=== PATIENT | female | born 2000 | race Caucasian/White ===

== ENCOUNTER → 2023-08-10 11:26 | Outpatient (CLI) | payer OTHER, SELFPAY ==
--- NOTE | 2023-08-10 11:29 | DI.US.S_ITS ---
PROCEDURE: US OB <= 14 WK FETUS ADD GEST INDICATIONS: DATING AND VIABILITY OUTSIDE/PRIOR DATING DATA: Last menstrual period (LMP): 02/21/2023. LMP-based estimated date of delivery (ZOË): 03/29/2024. First dating scan (date and location): 08/10/2023. Estimated date of delivery (ZOË) from first dating scan: 03/30/2024. The calculations are made using the working ZOË of 03/29/2024. TECHNIQUE: Real-time scanning was performed of the fetuses and maternal pelvic organs, with image documentation. Endovaginal scanning: Performed for better visualization of the fetuses and maternal adnexal structures. COMPARISON: None. FINDINGS: General: An intrauterine mono amniotic, mono chorionic twin is present, as evidenced by separate placental sites and/or intervening membrane thickness of greater than 2 mm at this early gestational age. Embryo A: [place]-rump length 6.7 mm, 6 weeks 4 days Heart rate: 141 beats per minute Embryo B: [place]-rump length 8.0 mm, 6 weeks 5 days Heart rate: 132 beats per minute There are yolk sacs present related to both fetus is period there is a small subchorionic hemorrhage inferior to fuse a gestational sac measuring 2.2 x 0.8 x 1.6 cm. Maternal organs: Ovaries within normal limits. IMPRESSION: Very early mono amniotic, mono chorionic twin with crown-rump lengths and heartbeats. Fetus A measures 6 weeks 4 days. Fetus B measures 6 weeks 5 days. Small subchorionic hemorrhage. We strive to produce accurate, complete, and clear reports of imaging services. To assist us in improving patient care, this report was composed using standard report templates and voice recognition software. Therefore, it may contain abnormal punctuation, insertions and/or omissions. Occasional wrong-word or sound-alike substitutions may occur. Though we review the report and make efforts to correct it, we do recommend that the report be read carefully in proper context to recognize any text inaccuracies. Dictated by: Jose Easton M.D. on 08/10/2023 at 15:44 Approved by: Jose Easton M.D. on 08/10/2023 at 15:49
== END ==
PROVIDERS: Referring Provider Family Medicine; Visit Provider Family Medicine
DX: O30.011 Twin pregnancy, monochorionic/monoamniotic, first trimester (principal); Z3A.01 Less than 8 weeks gestation of pregnancy
CPT/HCPCS: 76801; 76802

== ENCOUNTER 2023-08-12 15:24 | Emergency (ER) | payer OTHER, SELFPAY ==
[2023-08-12 15:27] VITALS: BP 135/72; PULSE 79; RESP 18; TEMP 37; O2SAT 100; BMI 33.9
--- NOTE | 2023-08-12 15:33 | DI.US.S_ITS ---
PROCEDURE: US OB <= 14 WEEKS FETUS INDICATIONS: CRAMPING OUTSIDE/PRIOR DATING DATA: Last menstrual period (LMP): 02/21/23 LMP-based estimated date of delivery (ZOË): 03/29/24. First dating scan (date and location): 08/10/23. Estimated date of delivery (ZOË) from first dating scan: 03/30/23. TECHNIQUE: Real-time scanning was performed of the fetus and maternal pelvic organs, with image documentation. Endovaginal scanning was also performed to better visualize the fetus and maternal ovaries. COMPARISON: None. FINDINGS: Embryos: Twin intrauterine gestations are again seen, mono amniotic, mono chorionic in appearance. Note is made of small adjacent subchorionic hemorrhages measuring 1 cm on the right and 1.6 cm on the left. Only a single small subchorionic hemorrhage had been seen on the prior study. Heart rate: Normal for each twin. Maternal organs: Ovaries normal considering gestational status. IMPRESSION: Living twin intrauterine gestations, monochorionic/mono amniotic. heart activity was seen at each twin, and there has been an interval development of a new small subchorionic hemorrhage measuring only 1.6 cm in maximal dimension. No evidence of placental abruption. We strive to produce accurate, complete, and clear reports of imaging services. To assist us in improving patient care, this report was composed using standard report templates and voice recognition software. Therefore, it may contain abnormal punctuation, insertions and/or omissions. Occasional wrong-word or sound-alike substitutions may occur. Though we review the report and make efforts to correct it, we do recommend that the report be read carefully in proper context to recognize any text inaccuracies. Dictated by: Alli Hassan M.D. on 08/12/2023 at 17:00 Approved by: Alli Hassan M.D. on 08/12/2023 at 17:05
--- NOTE | 2023-08-12 15:45 | PC.NURSE ---
Pt in US when called for room
[2023-08-12 16:28] LABS: Appearance Urine UA CLEAR; Bilirubin Urine UA NEGATIVE (NEGATIVE); Color Urine UA YELLOW; Glucose Urine UA NEGATIVE (Negative); Ketones Urine UA NEGATIVE (NEGATIVE); Leukocyte Esterase Urine UA NEGATIVE (NEGATIVE); Nitrite Urine UA NEGATIVE (Negative); Occult Blood Urine UA NEGATIVE (Negative); Protein Urine UA NEGATIVE (Negative); Specific Gravity Urine UA <=1.005 (1.000-1.035); Urobilinogen Urine UA 0.2 E.U./dL (0.2)
[2023-08-12 16:31] LABS: pH Urine UA 6.5 (4.5-8.0)
[2023-08-12 16:32] LABS: Add Manual Diff / Slide Review NO; Basophils Absolute Auto 100 /uL (0-100); Basophils Percent Auto 0.7 % (0-2); Eosinophils Absolute Auto 100 /uL (0-450); Eosinophils Percent Auto 1.1 % (2-4); Hematocrit 36.1 % (36-46); Hemoglobin 12.2 g/dL (12.0-16.0); Lymphocytes Absolute Auto 2200 /uL (1100-4500); Lymphocytes Percent Auto 28.3 % (25-40); Mean Corpuscular HGB Conc 33.8 % (30-36); Mean Corpuscular Hemoglobin 28.6 PG (26-34); Mean Corpuscular Volume 84.8 fL (80-100); Monocytes Absolute Auto 500 /uL (0-900); Monocytes Percent Auto 6.5 % (3-14); Neutrophils Absolute Auto 4900 /uL (1500-7000); Neutrophils Percent Auto 63.4 % (50-75); Platelet Count 316 X10^3/uL (150-400); Red Blood Cell Count 4.26 X10^6/uL (4.0-5.2); Red Cell Distribution Width 13.4 % (11.6-14.8); White Blood Cell Count 7.7 X10^3/uL (4.5-11.0)
--- NOTE | 2023-08-12 16:41 | ED_ITS ---
HPI - <Luzmaria Valentine PA-C - Last Filed: 08/12/23 17:40> General Chief complaint: OB/Uterine Contractions Stated complaint: 7 wks with twins, Pain and cramping Time Seen by Provider: 08/12/23 15:45 Source: patient Mode of arrival: Ambulatory History of Present Illness HPI Narrative: Patient is a 23-year-old female who presents with concern for uterine cramping. She had an ultrasound 4 days ago which diagnosed 6 week mono mono twins. She had a miscarriage in December of this year. She reports having lower abdominal cramping since this morning. She is had no spotting, bleeding or leaking. She is had no fever or chills and generally feels well. 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 She reports being very fatigued because of being and the length of her shifts including a commute to [place]. She is not getting much sleep and often wakes up a lot at night. She reports breast tenderness and fatigue. Related Data Allergies Allergy/AdvReac Type Severity Reaction Status Date / Time No Known Drug Allergies Allergy Verified 08/12/23 15:27 Review of Systems <Luzmaria Valentine PA-C - Last Filed: 08/12/23 17:40> Review of Systems ROS Unobtainable: All systems reviewed & are unremarkable except as noted in HPI and below Exam <Luzmaria Valentine PA-C - Last Filed: 08/12/23 17:40> Narrative Exam Narrative: GENERAL: 23 year old patient appears stated age. Well-developed patient, appears anxious, tearful. NEURO: AOx3. HEAD: Atraumatic. Normocephalic. EYES: Pupils equal round and reactive. Extraocular motions intact. No scleral icterus. No injection or drainage. ENT: Nose without bleeding or purulent drainage. Airway patent. NECK: Trachea midline. Non tender CARDIOVASCULAR: Regular rate and rhythm without murmurs, gallops, or rubs. RESPIRATORY: Clear to auscultation. Breath sounds equal bilaterally. GASTROINTESTINAL: Abdomen soft, non-tender, nondistended. EXTREMITIES: No edema or joint tenderness. SKIN: No rash or erythema of visible areas Initial Vital Signs Initial Vital Signs: Vital Signs Temperature 98.6 F 08/12/23 15:27 Pulse Rate 79 08/12/23 15:27 Respiratory Rate 18 08/12/23 15:27 Blood Pressure 135/72 08/12/23 15:27 Pulse Oximetry 100 08/12/23 15:27 Oxygen Delivery Method Room Air 08/12/23 15:27 <Marco A Hillman DO - Last Filed: 08/12/23 17:47> Initial Vital Signs Initial Vital Signs: Vital Signs Temperature 98.6 F 08/12/23 15:27 Pulse Rate 79 08/12/23 15:27 Respiratory Rate 18 08/12/23 15:27 Blood Pressure 135/72 08/12/23 15:27 Pulse Oximetry 100 08/12/23 15:27 Oxygen Delivery Method Room Air 08/12/23 15:27 Course <Luzmaria Valentine PA-C - Last Filed: 08/12/23 17:40> Orders Ordered: ED Orders 08/12/23 15:33 US OB <= 14 weeks fetus Stat 08/12/23 16:18 Urinalysis and Microscopic Stat 08/12/23 16:20 Complete Blood Count AUTO DIFF Stat Comprehensive Metabolic Panel Stat HCG Quantitative /Beta subunit Stat Type and Screen Stat Vital Signs Vital signs: Vital Signs - 8 hr 08/12/23 15:27 08/12/23 17:36 Temperature 98.6 F Pulse Rate 79 67 Respiratory Rate 18 18 Blood Pressure 135/72 124/58 L Pulse Oximetry 100 100 Oxygen Delivery Method Room Air Room Air <Marco A Hillman DO - Last Filed: 08/12/23 17:47> Orders Ordered: ED Orders 08/12/23 15:33 US OB <= 14 weeks fetus Stat 08/12/23 16:18 Urinalysis and Microscopic Stat 08/12/23 16:20 Complete Blood Count AUTO DIFF Stat Comprehensive Metabolic Panel Stat HCG Quantitative /Beta subunit Stat Type and Screen Stat Vital Signs Vital signs: Vital Signs - 8 hr 08/12/23 15:27 08/12/23 17:36 Temperature 98.6 F Pulse Rate 79 67 Respiratory Rate 18 18 Blood Pressure 135/72 124/58 L Pulse Oximetry 100 100 Oxygen Delivery Method Room Air Room Air MDM - OB/Uterine Contractions <Luzmaria Valentine PA-C - Last Filed: 08/12/23 17:40> Lab Data 08/12/23 16:20 08/12/23 16:20 Labs: Lab Results 08/12/23 08/12/23 Range/Units 16:18 16:20 WBC 7.7 (4.5-11.0) X10^3/uL RBC 4.26 (4.0-5.2) X10^6/uL Hgb 12.2 (12.0-16.0) g/dL Hct 36.1 (36-46) % MCV 84.8 (80-100) fL MCH 28.6 (26-34) PG MCHC 33.8 (30-36) % RDW 13.4 (11.6-14.8) % Plt Count 316 (150-400) X10^3/uL Neut % (Auto) 63.4 (50-75) % Lymph % (Auto) 28.3 (25-40) % [place] % (Auto) 6.5 (3-14) % Eos % (Auto) 1.1 L (2-4) % Baso % (Auto) 0.7 (0-2) % Neut # (Auto) 4900 (7831-5231) /uL Lymph # (Auto) 2200 (4347-4445) /uL [place] # (Auto) 500 (0-900) /uL Eos # (Auto) 100 (0-450) /uL Baso # (Auto) 100 (0-100) /uL Sodium 135 L (137-145) mmol/L Potassium 3.9 (3.4-5.1) mmol/L Chloride 102 (98-107) mmol/L Carbon Dioxide 25 (22-32) mmol/L BUN 7 (7-17) mg/dL Creatinine 0.63 (0.52-1.04) mg/dL Estimated GFR > 60 (>60) mL/min BUN/Creatinine Ratio 11.1 (6-22) Glucose 81 (70-100) mg/dL Calcium 9.7 (8.4-10.2) mg/dL Total Bilirubin 0.6 (0.2-1.3) mg/dL AST 37 H (14-36) IU/L ALT 38 H (<35) IU/L Alkaline Phosphatase 50 (38-126) U/L Total Protein 7.2 (6.3-8.2) g/dL Albumin 4.4 (3.5-5.0) g/dL Globulin 2.8 (1.7-4.1) g/dL Albumin/Globulin Ratio 1.6 (1.0-2.8) HCG, Quant 65589 mIU/mL Urine Color Yellow Urine Appearance Clear Urine pH 6.5 (4.5-8.0) Ur Specific [place] <=1.005 (1.000-1.035) Urine Protein Negative (Negative) Urine Glucose (UA) Negative (Negative) g/dL Urine Ketones Negative (NEGATIVE) Urine Occult Blood Negative (Negative) Urine Nitrate Negative (Negative) Urine Bilirubin Negative (NEGATIVE) Urine Urobilinogen 0.2 (0.2) E.U./dL Ur Leukocyte Esterase Negative (NEGATIVE) Urine RBC None seen (0-5/HPF) Urine WBC 0-1/hpf (0-5/HPF) Ur Squamous Epith Cells 1-5 /hpf (0-5/HPF) Urine Bacteria Occasional (0-1) (None) Ur Culture Indicated? Cult not indicated Blood Type A Positive Antibody Screen Negative Imaging Data US: Radiologist's Impression: PROCEDURE: US OB <= 14 WEEKS FETUS INDICATIONS: CRAMPING OUTSIDE/PRIOR DATING DATA: Last menstrual period (LMP): 02/21/23 LMP-based estimated date of delivery (ZOË): 03/29/24. First dating scan (date and location): 08/10/23. Estimated date of delivery (ZOË) from first dating scan: 03/30/23. TECHNIQUE: Real-time scanning was performed of the fetus and maternal pelvic organs, with image documentation. Endovaginal scanning was also performed to better visualize the fetus and maternal ovaries. COMPARISON: None. FINDINGS: Embryos: Twin intrauterine gestations are again seen, mono amniotic, mono chorionic in appearance. Note is made of small adjacent subchorionic hemorrhages measuring 1 cm on the right and 1.6 cm on the left. Only a single small subchorionic hemorrhage had been seen on the prior study. Heart rate: Normal for each twin. Maternal organs: Ovaries normal considering gestational status. IMPRESSION: Living twin intrauterine gestations, monochorionic/mono amniotic. heart activity was seen at each twin, and there has been an interval development of a new small subchorionic hemorrhage measuring only 1.6 cm in maximal dimension. No evidence of placental abruption. We strive to produce accurate, complete, and clear reports of imaging services. To assist us in improving patient care, this report was composed using standard report templates and voice recognition software. Therefore, it may contain abnormal punctuation, insertions and/or omissions. Occasional wrong-word or sound-alike substitutions may occur. Though we review the report and make efforts to correct it, we do recommend that the report be read carefully in proper context to recognize any text inaccuracies. Dictated by: Alli Hassan M.D. on 08/12/2023 at 17:00 Approved by: Alli Hassan M.D. on 08/12/2023 at 17:05 [facility] Narrative Medical decision making narrative: Multiple etiologies for patient's symptoms considered including, but not limited to: Urinary tract infection, normal early uterine stretching, early signs of miscarriage UA without signs of infection, CBC and chemistry without clinically significant abnormalities. Serum hCG appropriate for gestation. Ultrasound shows two intrauterine gestations with heart activity of both twins. Over the past several days there has been interval development of a new small subchorionic hemorrhage in addition to the previously noted subchorionic hemorrhage. Patient and partner updated with the results. Discussed limitations of an intervention at this stage in to preserve the . Discussed management of spotting or vaginal bleeding if this develops. Provided supportive listening. Patient has follow up phone call on with PCP and OB appointment on 08/29. Imaging reviewed: Ultrasound from 08/08/2023 Patient's symptoms improved over duration of stay with above-stated therapies. Findings and discharge diagnosis discussed with patient/family followed by verbalization of understanding Return precautions discussed with patient/family whom verbalize understanding of diagnosis and plan <Marco A Hillman, DO - Last Filed: 08/12/23 17:47> Lab Data Labs: Lab Results 08/12/23 08/12/23 Range/Units 16:18 16:20 WBC 7.7 (4.5-11.0) X10^3/uL RBC 4.26 (4.0-5.2) X10^6/uL Hgb 12.2 (12.0-16.0) g/dL Hct 36.1 (36-46) % MCV 84.8 (80-100) fL MCH 28.6 (26-34) PG MCHC 33.8 (30-36) % RDW 13.4 (11.6-14.8) % Plt Count 316 (150-400) X10^3/uL Neut % (Auto) 63.4 (50-75) % Lymph % (Auto) 28.3 (25-40) % [place] % (Auto) 6.5 (3-14) % Eos % (Auto) 1.1 L (2-4) % Baso % (Auto) 0.7 (0-2) % Neut # (Auto) 4900 (8804-7222) /uL Lymph # (Auto) 2200 (3572-3796) /uL [place] # (Auto) 500 (0-900) /uL Eos # (Auto) 100 (0-450) /uL Baso # (Auto) 100 (0-100) /uL Sodium 135 L (137-145) mmol/L Potassium 3.9 (3.4-5.1) mmol/L Chloride 102 (98-107) mmol/L Carbon Dioxide 25 (22-32) mmol/L BUN 7 (7-17) mg/dL Creatinine 0.63 (0.52-1.04) mg/dL Estimated GFR > 60 (>60) mL/min BUN/Creatinine Ratio 11.1 (6-22) Glucose 81 (70-100) mg/dL Calcium 9.7 (8.4-10.2) mg/dL Total Bilirubin 0.6 (0.2-1.3) mg/dL AST 37 H (14-36) IU/L ALT 38 H (<35) IU/L Alkaline Phosphatase 50 (38-126) U/L Total Protein 7.2 (6.3-8.2) g/dL Albumin 4.4 (3.5-5.0) g/dL Globulin 2.8 (1.7-4.1) g/dL Albumin/Globulin Ratio 1.6 (1.0-2.8) HCG, Quant 44705 mIU/mL Urine Color Yellow Urine Appearance Clear Urine pH 6.5 (4.5-8.0) Ur Specific [place] <=1.005 (1.000-1.035) Urine Protein Negative (Negative) Urine Glucose (UA) Negative (Negative) g/dL Urine Ketones Negative (NEGATIVE) Urine Occult Blood Negative (Negative) Urine Nitrate Negative (Negative) Urine Bilirubin Negative (NEGATIVE) Urine Urobilinogen 0.2 (0.2) E.U./dL Ur Leukocyte Esterase Negative (NEGATIVE) Urine RBC None seen (0-5/HPF) Urine WBC 0-1/hpf (0-5/HPF) Ur Squamous Epith Cells 1-5 /hpf (0-5/HPF) Urine Bacteria Occasional (0-1) (None) Ur Culture Indicated? Cult not indicated Blood Type A Positive Antibody Screen Negative Discharge Plan Departure Patient Disposition: Home Clinical Impression: related bilateral lower abdominal cramping, antepartum, Early stage of Instructions: Early Bleeding, DI for Abdominal Pain -- Early Activity Restrictions/Additional Instructions: *You have been diagnosed with abdominal cramping in early . There is no evidence of urinary tract infection infection in your blood today. Your labs look good. Ultrasound shows 2 embryos with heartbeats. It also shows 2 small areas of bleeding called subchorionic hemorrhage. Sometimes subchorionic hemorrhage does not affect the and sometimes a larger subchorionic hemorrhage is associated with an increased risk of miscarriage. There is nothing in particular you can do to stop these areas of bleeding or decrease the risk of miscarriage aside from taking care of yourself. Do your best to drink plenty of water, eat healthy food, rest, exercise, get at least 8 hours of sleep every night, take a vitamin, do not drink alcohol or use other drugs, and try to manage your stress. Sometimes people will have vaginal spotting or bleeding with a subchorionic hemorrhage. This does not always mean that you were having a miscarriage. You do not need to urgently return to the emergency room if you develop vaginal spotting or bleeding unless the bleeding is very heavy, you develop a fever or you have other systemic symptoms. You are welcome to return at any time for reassessment. Please follow up with your OB doctor as scheduled. *What to do: *Please continue to take your regular medications as directed. [ ] New medication prescriptions sent to your pharmacy: [ ] [ ] New medication written as a paper prescription [x] No new medications given *Please follow up with your primary care provider in 2-3 days, call for an appointment. Let them know you were seen in the Emergency Department and that we ask that you be seen in follow up. We will electronically transmit a record of today's note if your PCP is in our system *If you do not have a primary care provider please contact the [facility] Resource line at [phone]. They will ask some questions about your medical history and help get you set up with a doctor in the community. *Return to Emergency Department if you should have any new, worsening or concerning symptoms, such as [fever greater than 101 F, shaking chills, worsening pain, persistent vomiting or other concerning symptoms]. Prescriptions: Discontinued fluconazole 150 mg tablet 150 mg PO Q3D Qty: 2 0RF Referrals: Provider,Hanna MATUTE [Primary Care Provider] - Enid Roberts MD [Physician] - Stand Alone Forms: Patient Portal/API, Work Release Note ED Sign-out <Marco A Hillman, - Last Filed: 08/12/23 17:47> Cosign ED Attending Cosignature Attestation: Dr Hillman Co-Sign Statement: I was available for consultation during this patient's emergency department visit. This chart is signed by myself for administrative purposes only. I did not have direct contact with this patient during this visit. They were seen independently by the APC.
[2023-08-12 16:47] LABS: Alanine Aminotransferase 38 IU/L (<35); Albumin 4.4 g/dL (3.5-5.0); Albumin Globulin Ratio 1.6 (1.0-2.8); Alkaline Phosphatase 50 U/L (38-126); Aspartate Aminotransferase 37 IU/L (14-36); BUN Creatinine Ratio 11.1 (6-22); Bilirubin Total 0.6 mg/dL (0.2-1.3); Blood Urea Nitrogen 7 mg/dL (7-17); Calcium 9.7 mg/dL (8.4-10.2); Carbon Dioxide 25 mmol/L (22-32); Chloride 102 mmol/L (98-107); Estimated Glomerular Filt Rate > 60 mL/min (>60); Globulin 2.8 g/dL (1.7-4.1); Glucose 81 mg/dL (70-100); HEMOLYSIS < 15 (0-50); Potassium 3.9 mmol/L (3.4-5.1); Sodium 135 mmol/L (137-145); Total Protein 7.2 g/dL (6.3-8.2)
[2023-08-12 16:52] LABS: Bacteria Urine Occasional (0-1); Culture Indicated Urine Cult Not Indicated; RBC Urine None Seen (0-5/HPF); Squamous Epithelial Cell Urine 1-5 /HPF (0-5/HPF); WBC Urine 0-1/HPF (0-5/HPF)
[2023-08-12 17:28] LABS: HCG Quantitative /Beta subunit 89169 mIU/mL
[2023-08-12 17:36] VITALS: BP 124/58; PULSE 67; RESP 18; O2SAT 100
== END 2023-08-12 17:37 | disposition home or self-care (01) ==
PROVIDERS: Emergency Medicine; Emergency Provider Physician Assistant
DX: O26.891 Other specified pregnancy related conditions, first trimester (principal); O30.011 Twin pregnancy, monochorionic/monoamniotic, first trimester; R10.30 Lower abdominal pain, unspecified; Z3A.01 Less than 8 weeks gestation of pregnancy
CPT/HCPCS: 36415; 76801; 76802; 76817; 80053; 81001; 84702; 85025; 86850; 86900; 86901; 99281; 99283

== ENCOUNTER → 2023-08-23 16:22 | Outpatient (CLI) | payer OTHER, SELFPAY ==
[2023-08-23 19:52] LABS: Urine Chlamydia NOT DETECTED; Urine N gonorrhoeae NOT DETECTED
== END ==
PROVIDERS: Visit Provider Obstetrics & Gynecology
DX: Z34.01 Encounter for supervision of normal first pregnancy, first trimester (principal); Z3A.08 8 weeks gestation of pregnancy
CPT/HCPCS: 87491; 87591

== ENCOUNTER → 2023-09-20 15:52 | Outpatient (CLI) | payer OTHER, SELFPAY ==
[2023-09-20 17:34] LABS: Add Manual Diff / Slide Review NO; Basophils Absolute Auto 100 /uL (0-100); Basophils Percent Auto 0.8 % (0-2); Eosinophils Absolute Auto 100 /uL (0-450); Eosinophils Percent Auto 0.7 % (2-4); Hemoglobin 12.4 g/dL (12.0-16.0); Lymphocytes Absolute Auto 2000 /uL (1100-4500); Mean Corpuscular HGB Conc 34.5 % (30-36); Mean Corpuscular Hemoglobin 28.8 PG (26-34); Mean Corpuscular Volume 83.4 fL (80-100); Monocytes Absolute Auto 500 /uL (0-900); Monocytes Percent Auto 5.4 % (3-14); Neutrophils Absolute Auto 6500 /uL (1500-7000); Neutrophils Percent Auto 71.1 % (50-75); Platelet Count 304 X10^3/uL (150-400); Red Blood Cell Count 4.31 X10^6/uL (4.0-5.2); Red Cell Distribution Width 13.6 % (11.6-14.8); White Blood Cell Count 9.2 X10^3/uL (4.5-11.0)
[2023-09-20 20:56] LABS: Hepatitis B Surface Antigen NEGATIVE s/c (NEGATIVE)
[2023-09-20 21:04] LABS: HIV 1 & 2 Ab/Ag 4th Gen Combo NEGATIVE (NEGATIVE); Hep C Virus Ab w/Reflex Quant NEGATIVE s/c (NEGATIVE)
[2023-09-22 06:11] LABS: RPR Screen Non Reactive (Non Reactive)
[2023-09-23 10:36] LABS: Varicella IgG Antibody 171 index (Immune >165)
== END ==
PROVIDERS: Referring Provider Specialist; Visit Provider Obstetrics & Gynecology
DX: O30.011 Twin pregnancy, monochorionic/monoamniotic, first trimester (principal)
CPT/HCPCS: 36415; 80055; 86787; 86803; 86850; 86900; 86901; 87389

== ENCOUNTER 2023-10-16 20:39 | Emergency (ER) | payer OTHER, SELFPAY ==
[2023-10-16 20:48] VITALS: BP 116/65; PULSE 75; RESP 18; TEMP 37.7; O2SAT 100; BMI 54.3
--- NOTE | 2023-10-16 22:10 | DI.US.S_ITS ---
PROCEDURE: US OB LIMITED INDICATIONS: PAIN OUTSIDE/PRIOR DATING DATA: Last menstrual period (LMP): 02/21/23. LMP-based estimated date of delivery (ZOË): 03/29/24. First dating scan (date and location): 08/10/23. Estimated date of delivery (ZOË) from first dating scan: 03/30/24. The calculations are made using the working ZOË of 03/29/24. TECHNIQUE: Real-time scanning was performed of the fetuses, with image documentation and biometric measurements. Endovaginal scanning: Not performed COMPARISON: [facility], , OB <= 14 WK FETUS ADD GEST, 08/10/2023, 12:08. [facility], OB <= 14 WEEKS FETUS, 09/20/2023, 15:45. FINDINGS: General: An intrauterine mono chorionic, possibly diamniotic twin is present. Composite amniotic fluid index: Subjectively normal Maternal cervical canal: Closed and 3.8 cm long. Normal lower limit is 2.5 cm. FETUS A: Fetus is located on the maternal left side, and is in breech presentation. Placental position is anterior. No evidence of abruption. heart rate: 147 beats per minute. FETUS B: Fetus is located on the maternal right side, and is in breech presentation. Possibly shard placenta is anterior, without abruption. heart rate: 155 beats per minute. IMPRESSION: Very limited evaluation of viable twin . No visible placental abruption. Closed cervix. We strive to produce accurate, complete, and clear reports of imaging services. To assist us in improving patient care, this report was composed using standard report templates and voice recognition software. Therefore, it may contain abnormal punctuation, insertions and/or omissions. Occasional wrong-word or sound-alike substitutions may occur. Though we review the report and make efforts to correct it, we do recommend that the report be read carefully in proper context to recognize any text inaccuracies. Dictated by: Katya Cornejo M.D. on 10/16/2023 at 23:49 Approved by: Katya Cornejo M.D. on 10/17/2023 at 0:04
[2023-10-16 22:42] LABS: Add Manual Diff / Slide Review NO; Basophils Absolute Auto 0 /uL (0-100); Basophils Percent Auto 0.3 % (0-2); Eosinophils Absolute Auto 100 /uL (0-450); Eosinophils Percent Auto 1.1 % (2-4); Hematocrit 35.2 % (36-46); Lymphocytes Absolute Auto 2800 /uL (1100-4500); Lymphocytes Percent Auto 27.4 % (25-40); Mean Corpuscular HGB Conc 33.9 % (30-36); Mean Corpuscular Hemoglobin 28.5 PG (26-34); Monocytes Absolute Auto 500 /uL (0-900); Monocytes Percent Auto 4.8 % (3-14); Neutrophils Absolute Auto 6800 /uL (1500-7000); Neutrophils Percent Auto 66.4 % (50-75); Platelet Count 295 X10^3/uL (150-400); Red Blood Cell Count 4.19 X10^6/uL (4.0-5.2); Red Cell Distribution Width 14.1 % (11.6-14.8); White Blood Cell Count 10.2 X10^3/uL (4.5-11.0)
[2023-10-16 22:54] LABS: RBC Urine 10-30/HPF (0-5/HPF); Urine Volume 10mL (spun)
[2023-10-16 22:55] LABS: Bacteria Urine Many (>30); Squamous Epithelial Cell Urine 5-10 /HPF (0-5/HPF); WBC Urine 0-1/HPF (0-5/HPF)
[2023-10-16 22:56] LABS: Amorphous Sediment Urine 1+; Granular Casts Urine 0-1/LPF; Hyaline Casts Urine 0-1/LPF
[2023-10-16 22:57] LABS: Mucus Urine 1+ (Negative)
--- NOTE | 2023-10-17 01:28 | ED.PREGNANCY ---
HPI - General Chief complaint: OB/Uterine Contractions Stated complaint: 16 wks , Pelvic pain , cramps Time Seen by Provider: 10/17/23 01:27 Source: patient and family Mode of arrival: Wheelchair Limitations: no limitations History of Present Illness HPI Narrative: 23-year-old female who is about 16 weeks with a twin gestation. She is complaining of lower pelvic cramping. She has not have any vaginal bleeding. No flank pain no fevers, says that she has had some nausea and vomiting but no more than usual. She does not note any dysuria or frequency. No changes in her bowel habits. No previous abdominal surgeries. Related Data Home Medications Medication Instructions Recorded Confirmed fluoride (sodium) 1.1 % dental dental 08/18/23 10/07/23 paste vitamin-ferrous sulfate tab PO 08/18/23 10/07/23 27 mg iron-folic acid 0.8 mg tablet Previous Rx's Medication Instructions Recorded ondansetron 4 mg disintegrating 4 mg PO Q6H PRN nausea and 09/06/23 tablet vomiting #20 tabs cephalexin 500 mg capsule 500 mg PO QID #20 caps 10/17/23 Allergies Allergy/AdvReac Type Severity Reaction Status Date / Time No Known Drug Allergies Allergy Verified 10/07/23 16:01 Exam Initial Vital Signs Initial Vital Signs: Vital Signs Temperature 99.8 F H 10/16/23 20:48 Pulse Rate 75 10/16/23 20:48 Respiratory Rate 18 10/16/23 20:48 Blood Pressure 116/65 10/16/23 20:48 Pulse Oximetry 100 10/16/23 20:48 Oxygen Delivery Method Room Air 10/16/23 20:48 Const General: No acute distress HENIA Head: normocephalic and atraumatic Mouth: moist mucous membranes Resp Effort & Inspection: normal respiratory effort Auscultation: clear to auscultation bilaterally GI Other: Normal bowel sounds soft suprapubic tenderness without guarding or rebound no CVAT Skin Other: Warm and dry Neuro General: patient alert and patient oriented x3 Course Orders Ordered: ED Orders 10/16/23 22:10 US OB limited Stat 10/16/23 22:25 CBC Auto Diff [Complete Blood Count AUTO DIFF] Stat 10/16/23 22:47 Urine Culture Stat Urine Microscopic Stat Discontinued Medications Cephalexin HCl (Cephalexin 250 Mg Capsule) 500 mg PO NOW ONE Stop: 10/17/23 01:56 Vital Signs Vital signs: Vital Signs - 8 hr 10/16/23 20:48 Temperature 99.8 F H Pulse Rate 75 Respiratory Rate 18 Blood Pressure 116/65 Pulse Oximetry 100 Oxygen Delivery Method Room Air MDM - OB/Uterine Contractions Lab Data Lab results narrative: CBC with diff is unremarkable, urinalysis shows red cells white cells and bacteria, few squamous cells, urine is sent for culture 10/16/23 22:25 Labs: Lab Results 10/16/23 10/16/23 Range/Units 22:25 22:47 WBC 10.2 (4.5-11.0) X10^3/uL RBC 4.19 (4.0-5.2) X10^6/uL Hgb 12.0 (12.0-16.0) g/dL Hct 35.2 L (36-46) % MCV 84.0 (80-100) fL MCH 28.5 (26-34) PG MCHC 33.9 (30-36) % RDW 14.1 (11.6-14.8) % Plt Count 295 (150-400) X10^3/uL Neut % (Auto) 66.4 (50-75) % Lymph % (Auto) 27.4 (25-40) % [place] % (Auto) 4.8 (3-14) % Eos % (Auto) 1.1 L (2-4) % Baso % (Auto) 0.3 (0-2) % Neut # (Auto) 6800 (9474-7511) /uL Lymph # (Auto) 2800 (4085-7267) /uL [place] # (Auto) 500 (0-900) /uL Eos # (Auto) 100 (0-450) /uL Baso # (Auto) 0 (0-100) /uL Urine RBC 10-30/hpf H (0-5/HPF) Urine WBC 0-1/hpf (0-5/HPF) Ur Squamous Epith Cells 5-10 /hpf H (0-5/HPF) Amorphous Sediment 1+ Urine Bacteria Many (>30) H (None) Hyaline Casts 0-1/lpf (None) Granular Casts 0-1/lpf (None) Urine Mucus 1+ H (Negative) Vol Urine Centrifuged 10ml (spun) Urine Dip Bedside Urine Glucose Negative Bedside Urine Bilirubin - Negative Bedside Urine Ketone - Negative Urine Specific [place] 1.015 Bedside Urine Occult Blood +++ Bedside Urine pH 6 Bedside Urine Protein - Negative Bedside Urine Urobilinogen - Negative Bedside Urine Nitrite - Negative Bedside Urine Leukocytes - Negative Esterase Imaging Data ob ultrasound: Radiologist's Impression: [address] [address] Ultrasound Report Signed Patient: Georgina Dillard MR#: [id number] : 2000 Acct:[id number] Age/Sex: 23 / F Date of Service: 10/16/23 Loc: ED Accession Number: [id number] Procedure: US OB limited Ordering Provider: Gonzalo Wilkerson MD PROCEDURE: US OB LIMITED INDICATIONS: PAIN OUTSIDE/PRIOR DATING DATA: Last menstrual period (LMP): 02/21/23. LMP-based estimated date of delivery (ZOË): 03/29/24. First dating scan (date and location): 08/10/23. Estimated date of delivery (ZOË) from first dating scan: 03/30/24. The calculations are made using the working ZOË of 03/29/24. TECHNIQUE: Real-time scanning was performed of the fetuses, with image documentation and biometric measurements. Endovaginal scanning: Not performed COMPARISON: [facility], US OB <= 14 WK FETUS ADD GEST, 08/10/2023, 12:08. [facility], US OB <= 14 WEEKS FETUS, 09/20/2023, 15:45. FINDINGS: General: An intrauterine mono chorionic, possibly diamniotic twin is present. Composite amniotic fluid index: Subjectively normal Maternal cervical canal: Closed and 3.8 cm long. Normal lower limit is 2.5 cm. FETUS A: Fetus is located on the maternal left side, and is in breech presentation. Placental position is anterior. No evidence of abruption. heart rate: 147 beats per minute. FETUS B: Fetus is located on the maternal right side, and is in breech presentation. Possibly shard placenta is anterior, without abruption. heart rate: 155 beats per minute. IMPRESSION: Very limited evaluation of viable twin . No visible placental abruption. Closed cervix. MDM Narrative Medical decision making narrative: 23-year-old female at 16 weeks' gestation presenting with midline pelvic cramping. She has not bleeding, ultrasound does not suggest miscarriage and is definitely intrauterine. Patient is nontoxic does not have CVAT I considered but do not suspect pyelonephritis. Urinalysis does suggest presence of infection, I started her on Keflex 500 q.i.d. x5 days. She is to follow up with her OB provider. Indications to return to the emergency department were reviewed Discharge Plan Departure Patient Disposition: Home Clinical Impression: Urinary tract infection affecting care of mother in first trimester, antepartum Instructions: DI for Urinary Tract Infection (UTI) Activity Restrictions/Additional Instructions: Take the prescribed cephalexin for the full course. May use Tylenol as needed for cramping. Get adequate fluids. Follow up soon with your OB provider, return to the emergency department for fevers, increasing pain severe cramping or bleeding. Prescriptions: New cephalexin 500 mg capsule 500 mg PO QID Qty: 20 0RF No Action vit-ferrous sulfat-FA 27 mg iron- 0.8 mg tablet PO fluoride (sodium) 1.1 % paste dental ondansetron 4 mg tablet,disintegrating 4 mg PO Q6H PRN (Reason: nausea and vomiting) Qty: 20 2RF Referrals: ProviderHanna [Primary Care Provider] - Stand Alone Forms: Patient Portal/API
[2023-10-17] MEDS: cephALEXin 250 MG CAPSULE 500 MG PO (02:12)
[2023-10-17 02:14] VITALS: BP 103/59; PULSE 69; RESP 16; O2SAT 98
== END 2023-10-17 02:19 | disposition home or self-care (01) ==
PROVIDERS: Emergency Provider Emergency Medicine
DX: O23.42 Unspecified infection of urinary tract in pregnancy, second trimester (principal); N39.0 Urinary tract infection, site not specified; R10.2 Pelvic and perineal pain; Z3A.16 16 weeks gestation of pregnancy
CPT/HCPCS: 36415; 76812; 76815; 81003; 81015; 85025; 87086; 99283; 99284

== ENCOUNTER → 2023-11-04 09:18 | Outpatient (CLI) | payer OTHER, SELFPAY ==
[2023-11-07 14:16] LABS: AFP Value 69.9 ng/mL (.); Gest Age on Col Date 19.1 weeks (.); Insulin Dep Diabetes No (.); OSBR Risk 1IN 2452 (.); Results Report (.); Test Results *Screen Negative* (.)
[2023-11-08 09:40] LABS: PDF SCANNED
== END ==
LOC: LAB 09:19
PROVIDERS: Referring Provider Obstetrics & Gynecology; Visit Provider Obstetrics & Gynecology
DX: Z34.82 Encounter for supervision of other normal pregnancy, second trimester (principal); Z3A.19 19 weeks gestation of pregnancy
CPT/HCPCS: 36415; 82105

== ENCOUNTER 2023-12-09 13:52 | Outpatient (CLI) | payer OTHER, SELFPAY | END 2023-12-09 14:41 | disposition home or self-care (01) | LOC: OB 12-16 14:31 | PROVIDERS: Referring Provider Specialist; Visit Provider Specialist | DX: O30.032 Twin pregnancy, monochorionic/diamniotic, second trimester (principal); Z3A.24 24 weeks gestation of pregnancy | CPT/HCPCS: 59025; G0378; G0379 ==

== ENCOUNTER → 2023-12-24 09:40 | Outpatient (CLI) | payer OTHER, SELFPAY ==
[2023-12-24 11:16] LABS: Hematocrit 28.7 % (36-46); Hemoglobin 9.6 g/dL (12.0-16.0)
[2023-12-24 11:37] LABS: GTT (PREG) 1 Hour PP 50gm Dose 145 mg/dL (76-139)
== END ==
LOC: LAB 09:41
PROVIDERS: Referring Provider Obstetrics & Gynecology; Visit Provider Obstetrics & Gynecology
DX: Z34.82 Encounter for supervision of other normal pregnancy, second trimester (principal); Z3A.26 26 weeks gestation of pregnancy
CPT/HCPCS: 36415; 82950; 85014; 85018

== ENCOUNTER → 2024-01-11 08:00 | Outpatient (CLI) | payer OTHER, SELFPAY ==
[2024-01-11 09:09] LABS: Glucose Fasting Gestational 77 mg/dL (76-95)
[2024-01-11 10:08] LABS: Glucose 1 Hour Gest 180 mg/dL (76-180)
[2024-01-11 11:19] LABS: Glucose Tol Interp,Gestational INTERPRETATION
[2024-01-11 12:12] LABS: Glucose 3 Hour Gest 34 mg/dL (76-140)
[2024-01-11 12:13] LABS: Glucose 2 Hour Gest 123 mg/dL (76-155)
== END ==
PROVIDERS: Referring Provider Specialist; Visit Provider Specialist
DX: O99.810 Abnormal glucose complicating pregnancy (principal)
CPT/HCPCS: 36415; 82951; 82952

== ENCOUNTER 2024-01-18 19:03 | Observation (INO) | payer OTHER, SELFPAY ==
[2024-01-18 19:53] LABS: Appearance Urine UA CLEAR; Bilirubin Urine UA NEGATIVE (NEGATIVE); Color Urine UA YELLOW; Glucose Urine UA NEGATIVE (Negative); Ketones Urine UA NEGATIVE (NEGATIVE); Leukocyte Esterase Urine UA TRACE (NEGATIVE); Nitrite Urine UA NEGATIVE (Negative); Occult Blood Urine UA NEGATIVE (Negative); Protein Urine UA NEGATIVE (Negative); Specific Gravity Urine UA 1.015 (1.000-1.035); Urobilinogen Urine UA 0.2 E.U./dL (0.2)
--- NOTE | 2024-01-18 20:00 | P.TNLD_ITS ---
Visit Information Visit Information Date of evaluation: 01/18/24 Primary OB Provider: Amy Chavarria On-call OB Provider: Mary White Reason for Evaluation: Yes pre-term labor and Yes rule out labor Comments/Additional reasons for admission: 23yo at 29w6d with mono-di TIUP, presents to triage for eval at direction of on-call MD after calling after-hours line with c/o sudden onset bilateral lower quadrant pain without provocation, h/o intermittent spotting without bruna vaginal bleeding x1wk. Pt states she was cooking dinner when she experienced sudden severe abdominal pain that forced her to curl up on the floor in a position. +FMx2, slow resolution in pain from 9/10 to 4/10 at time of triage presentation. Had not yet attempted any temporizing measures at home prior to presentation secondary to severity of pain. Patient describes pain as constant, dull with radiation to her lower back. Localizes to two distinct points approximately 10cm lateral to umbilicus bilaterally, tender to palpation without rebound/guarding. Last intimacy >2mos ago, initially reported small amount of spotting approx 2wks ago that was not associated with cramping. Denies bruna vaginal bleeding. Denies external irritation. Also notes increasing sx of GERD. Vital Signs Vital Signs: BP 137/72 HR 90 RR 18 Tc 36.3 PFSH Medical History (Updated 01/18/24 @ 21:03 by Mary White MD) Diastasis recti Vertigo (~2020) Tinnitus (~2020) Chlamydia (~2018) Ovarian cyst (~2019) Hearing loss in left ear (~2019) Surgical History (Updated 08/18/23 @ 08:08 by Phoebe Pena RN) No pertinent past surgical history Family History (Updated 10/03/23 @ 21:10 by Maria Del Rosario Hutchins) Father Hearing loss Hyperlipidemia Carpal tunnel syndrome Hypertension Brother ADHD Grandmother Skin cancer Grandfather Heart attack Hypertension Grandfather Early onset Alzheimer's dementia Aunt Breast cancer Uncle Liver cancer Drug abuse Family/Other Twin Social History marital status: number of children: 0 household members: spouse and friend(s) lives independently: Yes caregiver/support person: No pets and animals: Yes (2 cats) education level: high school occupational status: employed current occupational exposures/hazards: No special hazel needs: No travel history: over 6 months ago seatbelt use: always water heater temp set < 120 deg: Yes working smoke detector in home: Yes fire extinguisher in home: Yes carbon monox detector in home: Yes firearms in home: No do you feel safe at home: Yes Smoking Status: Former smoker second hand exposure: Yes ( vapes) alcohol intake: former substance use type: does not use during the past year weight has: increased > 10 lbs well-balanced diet: daily or most days daily servings fruits/ve-4 caffeine: No (stopped w/ ) Type(s) of exercise: walking Review of Systems Review of Systems ROS: Yes All systems reviewed with the patient and are negative except as otherwise documented Exam Narrative Exam Narrative: resting supine in bed, NAD Const General: cooperative Nutritional Appearance: obese Orientation: alert, awake and oriented x3 HENMT Head: normal to inspection Mouth: moist mucous membranes Resp Effort & Inspection: normal respiratory effort Cardio Pulses: normal peripheral pulses GI Inspection: striae Palpation: soft Other: gravid abdomen, fundal height obscured secondary to pannus no TTP on distracted exam, moderate point tenderness with palpation of rectus mm bilaterally at level of umbilicus, no distinct fundal tenderness Other: normal external female genitalia, perineum and anus without rash or lesion, urethral meatus wnl scant physiologic discharge noted without abnormality/pooling cervix visually closed, digital exam deferred Skin General: no rashes or lesions noted Neuro General: patient alert, patient awake and patient oriented x3 Extrem General: normal to inspection Psych Appearance: grossly normal Mental Status: mental status grossly normal Speech and Movement: speech and movement normal Mood: congruent mood Thought Content: normal Judgment: judgment good Objective Labs Labs: Laboratory Results - last 24 hr 01/18/24 19:20 Urine Color Yellow Urine Appearance Clear Urine pH 7.0 Ur Specific [place] 1.015 Urine Protein Negative Urine Glucose (UA) Negative Urine Ketones Negative Urine Occult Blood Negative Urine Nitrate Negative Urine Bilirubin Negative Urine Urobilinogen 0.2 Ur Leukocyte Esterase Trace H Evaluation Evaluation Comments: Baby A: 140bpm, mod jean-pierre, + accels/no decels Baby B: 135bpm, mod jean-pierre, +accels/no decels [place]: mild baseline irritability without distinct contractions, non-palpable Diagnosis, Plan/Disposition Final Diagnosis (1) Diastasis recti: Status: Acute Problem details: msk pain with point tenderness of rectus mm patient counseled on use of heat/ice, PO tylenol PRN reassuring surveillance x2, no evidence of threatened PTL at time of tonight's encounter pt encouraged to obtain maternity support garment, resources reviewed strict bleeding precautions reviewed - spotting at present most consistent with internal hemorrhoid, no evidence of cervical dilation/irritation on exam Plan/Disposition Plan: dc to home with strict precautions, f/u in office as scheduled with Dr. Chavarria and MFM OB Disposition: home
[2024-01-18 20:03] LABS: Bacteria Urine Moderate (10-30); Culture Indicated Urine Cult Not Indicated; RBC Urine None Seen (0-5/HPF); Squamous Epithelial Cell Urine 1-5 /HPF (0-5/HPF); Urine Volume 10mL (spun); WBC Urine 1-5/HPF (0-5/HPF)
[2024-01-18] MEDS: CALCIUM CARBONATE 500 MG TAB 1000 MG PO (20:39)
[2024-01-18] MEDS: ACETAMINOPHEN 325 MG TABLET 650 MG PO (20:39)
== END 2024-01-18 21:12 | disposition home or self-care (01) ==
PROVIDERS: Admitting Provider Obstetrics & Gynecology; Referring Provider Obstetrics & Gynecology; Visit Provider Obstetrics & Gynecology
DX: O26.893 Other specified pregnancy related conditions, third trimester (principal); O30.033 Twin pregnancy, monochorionic/diamniotic, third trimester; M62.08 Separation of muscle (nontraumatic), other site; Z3A.29 29 weeks gestation of pregnancy
CPT/HCPCS: 59025; 76815; 81001; G0378; G0379

== ENCOUNTER 2024-01-25 09:55 | Observation (INO) | payer OTHER, SELFPAY | END 2024-01-25 10:48 | disposition home or self-care (01) | PROVIDERS: Admitting Provider Obstetrics & Gynecology; Referring Provider Obstetrics & Gynecology; Visit Provider Obstetrics & Gynecology | DX: O30.003 Twin pregnancy, unspecified number of placenta and unspecified number of amniotic sacs, third trimester (principal); O99.013 Anemia complicating pregnancy, third trimester; D64.9 Anemia, unspecified; Z3A.30 30 weeks gestation of pregnancy | CPT/HCPCS: 59025; G0378; G0379 ==

== ENCOUNTER → 2024-02-10 11:19 | Outpatient (CLI) | payer OTHER, SELFPAY ==
[2024-02-10 12:56] LABS: Add Manual Diff / Slide Review NO; Basophils Absolute Auto 0 /uL (0-100); Basophils Percent Auto 0.4 % (0-2); Eosinophils Absolute Auto 100 /uL (0-450); Eosinophils Percent Auto 0.9 % (2-4); Hematocrit 35.2 % (36-46); Hemoglobin 11.8 g/dL (12.0-16.0); Lymphocytes Absolute Auto 2500 /uL (1100-4500); Lymphocytes Percent Auto 24.4 % (25-40); Mean Corpuscular HGB Conc 33.4 % (30-36); Mean Corpuscular Hemoglobin 28.3 PG (26-34); Mean Corpuscular Volume 84.8 fL (80-100); Monocytes Absolute Auto 600 /uL (0-900); Monocytes Percent Auto 5.5 % (3-14); Neutrophils Absolute Auto 6900 /uL (1500-7000); Neutrophils Percent Auto 68.8 % (50-75); Platelet Count 375 X10^3/uL (150-400); Red Blood Cell Count 4.15 X10^6/uL (4.0-5.2); Red Cell Distribution Width 18.9 % (11.6-14.8); White Blood Cell Count 10.1 X10^3/uL (4.5-11.0)
[2024-02-10 13:40] LABS: Iron 69 ug/dL (37-170)
[2024-02-10 14:13] LABS: Ferritin 29 ng/mL (6-137)
== END ==
PROVIDERS: Referring Provider Obstetrics & Gynecology; Visit Provider Obstetrics & Gynecology
DX: Z34.83 Encounter for supervision of other normal pregnancy, third trimester (principal); E61.1 Iron deficiency
CPT/HCPCS: 36415; 82728; 83540; 85025

== ENCOUNTER 2024-02-10 11:20 | Outpatient (CLI) | payer OTHER, SELFPAY | END 2024-02-10 12:35 | disposition home or self-care (01) | LOC: OB 02-13 08:11 | PROVIDERS: Referring Provider Obstetrics & Gynecology; Visit Provider Obstetrics & Gynecology | DX: O30.003 Twin pregnancy, unspecified number of placenta and unspecified number of amniotic sacs, third trimester (principal); O99.283 Endocrine, nutritional and metabolic diseases complicating pregnancy, third trimester; E61.1 Iron deficiency; Z3A.33 33 weeks gestation of pregnancy | CPT/HCPCS: 36415; 59025; 82728; 83540; 85025; G0378; G0379 ==

== ENCOUNTER 2024-02-17 11:46 | Outpatient (CLI) | payer OTHER, SELFPAY | END 2024-02-17 13:30 | disposition home or self-care (01) | LOC: LABOR 13:04 → OB 02-20 15:02 | PROVIDERS: Referring Provider Obstetrics & Gynecology; Visit Provider Obstetrics & Gynecology | DX: O30.003 Twin pregnancy, unspecified number of placenta and unspecified number of amniotic sacs, third trimester (principal); Z3A.34 34 weeks gestation of pregnancy | CPT/HCPCS: 59025; 59050; G0378; G0379 ==

== ENCOUNTER → 2024-02-24 12:03 | Outpatient (CLI) | payer OTHER, SELFPAY ==
[2024-02-25 13:49] LABS: Strep Grp B PCR POS for Grp B Strep
== END ==
PROVIDERS: Visit Provider Obstetrics & Gynecology
DX: Z34.83 Encounter for supervision of other normal pregnancy, third trimester (principal); Z3A.36 36 weeks gestation of pregnancy
CPT/HCPCS: 87653

== ENCOUNTER 2024-02-24 12:24 | Outpatient (CLI) | payer OTHER, SELFPAY | END 2024-02-24 13:20 | disposition home or self-care (01) | LOC: LABOR 13:28 → OB 02-27 06:18 | PROVIDERS: Referring Provider Obstetrics & Gynecology; Visit Provider Obstetrics & Gynecology | DX: O30.003 Twin pregnancy, unspecified number of placenta and unspecified number of amniotic sacs, third trimester (principal); Z3A.35 35 weeks gestation of pregnancy | CPT/HCPCS: 59025; 87653; G0378; G0379 ==

== ENCOUNTER 2024-02-26 01:28 | Inpatient (IN) | payer OTHER, SELFPAY ==
[2024-02-26] MEDS: LACTATED RINGERS 1,000 ML 1000 ML IV (02:35)
[2024-02-26] MEDS: ONDANSETRON 4 MG/2 ML INJ IV ×3 (02:35→16:18)
[2024-02-26 02:50] LABS: Alanine Aminotransferase 45 IU/L (<35); Albumin 3.7 g/dL (3.5-5.0); Albumin Globulin Ratio 1.3 (1.0-2.8); Alkaline Phosphatase 190 U/L (38-126); Aspartate Aminotransferase 101 IU/L (14-36); BUN Creatinine Ratio 5.5 (6-22); Bilirubin Total 1.3 mg/dL (0.2-1.3); Blood Urea Nitrogen 3 mg/dL (7-17); Calcium 8.5 mg/dL (8.4-10.2); Carbon Dioxide 21 mmol/L (22-32); Chloride 109 mmol/L (98-107); Estimated Glomerular Filt Rate > 60 mL/min (>60); Globulin 2.8 g/dL (1.7-4.1); Glucose 76 mg/dL (70-100); HEMOLYSIS < 15 (0-50); Potassium 3.2 mmol/L (3.4-5.1); Sodium 138 mmol/L (137-145); Total Protein 6.5 g/dL (6.3-8.2)
[2024-02-26 03:00] LABS: Add Manual Diff / Slide Review NO; Basophils Absolute Auto 0 /uL (0-100); Basophils Percent Auto 0.5 % (0-2); Eosinophils Absolute Auto 100 /uL (0-450); Eosinophils Percent Auto 0.8 % (2-4); Hematocrit 35.9 % (36-46); Hemoglobin 12.1 g/dL (12.0-16.0); Lymphocytes Absolute Auto 2200 /uL (1100-4500); Lymphocytes Percent Auto 23.7 % (25-40); Mean Corpuscular HGB Conc 33.8 % (30-36); Mean Corpuscular Hemoglobin 28.4 PG (26-34); Monocytes Absolute Auto 700 /uL (0-900); Monocytes Percent Auto 7.2 % (3-14); Neutrophils Absolute Auto 6300 /uL (1500-7000); Neutrophils Percent Auto 67.8 % (50-75); Platelet Count 329 X10^3/uL (150-400); Red Blood Cell Count 4.27 X10^6/uL (4.0-5.2); Red Cell Distribution Width 18.4 % (11.6-14.8); White Blood Cell Count 9.2 X10^3/uL (4.5-11.0)
[2024-02-26 03:41] LABS: Creatinine Urine Random 75.22 mg/dL; Protein (Total) Urine Random 23 mg/dL (0-12)
--- NOTE | 2024-02-26 06:07 | P.HPOB_ITS ---
OB HPI Date/Time Date of admission: 02/26/24 Date Patient Seen: 02/26/24 Time Patient Seen: 06:09 History of Present Condition Chief complaint: labor ZOË Calculator 2 Estimated Delivery Date Method Current WG Current Estimate 03/29/24 LMP (Uncertain) 35w 3d Other Estimates 03/29/24 Ultrasound #1 35w 3d # 2 Estimated Gestational Age (weeks): 35w3d care: good care Dating criteria OB: LMP confirmed by 1st trimester US Abnormal ultrasound findings: serial growth US and co-management with MFM throughout Obstetrical complications: other (mono-di TIUP ) Medical complications OB: other (maternal class 3 obesity ) Narrative: 23yo at 35w2d by 8wk US with mono/di TIUP presents to L&D for further evaluation of new onset severe RUQ pain with associated nausea and emesis. Patient states sudden onset of RUQ pain late yesterday evening without provocation, +FM x2, denies VB, LOF dysuria. Notes pain is constant, inconsistent with contractions and exacerbated by movement or taking deep breaths. Non-sustained mild range BP on arrival, cat 1 tracing x2. External History : 2 Para: 0 Indications Operative indications ( section): other (pre-eclampsia with severe features remote from delivery ) Preadmission Labs Last OB Lab Results: 2 Blood Type A Positive 09/20/23 15:57 Antibody Screen Negative 09/20/23 15:57 Hematocrit 35.4 % (36-46) L 02/26/24 02:25 Hemoglobin 11.9 g/dL (12.0-16.0) L 02/26/24 02:25 Hepatitis B Surface Antigen Negative s/c (NEGATIVE) 09/20/23 15 :57 Hepatitis C Antibody Negative s/c (NEGATIVE) 09/20/23 15:57 Rubella Antibody 13.0 IU/mL (>15) L 09/20/23 15:57 Varicella-Zoster IgG Antibody 171 index (Immune >165) 09/20/23 15:57 Glucose 1 Hour 145 mg/dL (76-139) H 12/24/23 10:55 Group B Streptococcus (PCR) Pos for grp b strep H 02/24/24 12:0 3 -: Chlamydia screen: negative, Gonorrhea screen: negative and Urine: negative -: PAP smear: Normal Genetic Screens: Cell-free DNA: Normal and Alpha-fetoprotein: Normal External Labs Blood type OB HPI: A (+) positive -: Antibody screen: negative, HBsAG: negative, HIV: negative, RPR/VDLR: negative, Chlamydia screen: negative, Gonorrhea screen: negative, Cystic fibrosis screen: unknown, GBS status: positive and Urine: negative -: Rubella: immune and Varicella: unknown PAP: Normal Genetic Screens: Cell-free DNA: Normal and Alpha-fetoprotein: Normal Narrative: abnormal 1h OGTT (145) documented normal 3h OGTT, unable to visualize values at time of admission documentation Prior (ies) Past Pregnancies Del. Date GA/Weeks Labor Lgth Wt Sex Route Outcome Anesthesia Place Delv Breastfeed Preg Comp Name 12/12/23 6 spontaneous Delivery Date: 12/12/23 Last Updated by: Phoebe Pena RN passed spontaneously, no complications Evaluation Evaluation Comments: Cat 1 tracing x2 A - 110bpm, mod jean-pierre, + accel, no decel B - 120bpm, mod jean-pierre, + accel, no decel irregular contractions noted per toco, palpate mild PFSH Medical History (Updated 02/11/24 @ 19:37 by Amy Chavarria MD) Diastasis recti Vertigo (~2020) Tinnitus (~2020) Chlamydia (~2017) Ovarian cyst (~2018) Hearing loss in left ear (~2018) Surgical History (Updated 08/18/23 @ 08:08 by Phoebe Pena RN) No pertinent past surgical history Family History (Updated 10/03/23 @ 21:10 by Maria Del Rosario Hutchins) Father Hearing loss Hyperlipidemia Carpal tunnel syndrome Hypertension Brother ADHD Grandmother Skin cancer Grandfather Heart attack Hypertension Grandfather Early onset Alzheimer's dementia Aunt Breast cancer Uncle Liver cancer Drug abuse Family/Other Twin Social History marital status: number of children: 0 household members: spouse and friend(s) lives independently: Yes caregiver/support person: No pets and animals: Yes (2 cats) education level: high school occupational status: employed current occupational exposures/hazards: No special hazel needs: No travel history: over 6 months ago seatbelt use: always water heater temp set < 120 deg: Yes working smoke detector in home: Yes fire extinguisher in home: Yes carbon monox detector in home: Yes firearms in home: No do you feel safe at home: Yes Smoking Status: Former smoker second hand exposure: Yes ( vapes) alcohol intake: former substance use type: does not use during the past year weight has: increased > 10 lbs well-balanced diet: daily or most days daily servings fruits/ve-4 caffeine: No (stopped w/ ) Type(s) of exercise: walking Meds Home Medications and Allergies Home Medications Medication Instructions Recorded Confirmed Type fluoride (sodium) 1.1 % dental dental 08/18/23 02/24/24 History paste vitamin-ferrous sulfate tab PO 08/18/23 02/24/24 History 27 mg iron-folic acid 0.8 mg tablet cephalexin 500 mg capsule 500 mg PO QID #20 caps 10/17/23 02/24/24 Rx ondansetron 4 mg disintegrating 4 mg PO Q6H PRN nausea and 11/04/23 02/24/24 Rx tablet vomiting #60 tabs pantoprazole 40 mg tablet,delayed 40 mg PO DAILY #30 tabs 01/19/24 02/24/24 Rx release (Protonix) Allergies Allergy/AdvReac Type Severity Reaction Status Date / Time No Known Drug Allergies Allergy Verified 02/24/24 11:56 Review of Systems Review of Systems ROS: Yes All systems reviewed with the patient and are negative except as otherwise documented OB Exam Vital signs Blood Pressure: 141/80 Pulse Rate: 94 Respiratory Rate: 18 Temperature: 36.4 F Narrative Exam Narrative: resting in bed, moderate discomfort with deep inspiration HENMT Head: normal to inspection Mouth: moist mucous membranes Other: mild facial edema noted Resp Effort & Inspection: able to speak in complete sentences Auscultation: clear to auscultation bilaterally Cardio Rate: regular rate Rhythm: regular rhythm Extremities Lower extremity: Yes normal to inspection and edema (+2) Laterality: bilateral GI Inspection: large pannus, obesity and striae Palpation: Yes soft Other: gravid abdomen, dependent pannus noted Other: exam deferred Objective Labs 02/26/24 02:25 02/26/24 02:25 Labs: Laboratory Results - last 24 hr 02/26/24 02/26/24 02:25 03:12 WBC 9.2 RBC 4.27 Hgb 12.1 Hct 35.9 L MCV 84.0 MCH 28.4 MCHC 33.8 RDW 18.4 H Plt Count 329 Neut % (Auto) 67.8 Lymph % (Auto) 23.7 L [place] % (Auto) 7.2 Eos % (Auto) 0.8 L Baso % (Auto) 0.5 Neut # (Auto) 6300 Lymph # (Auto) 2200 [place] # (Auto) 700 Eos # (Auto) 100 Baso # (Auto) 0 Sodium 138 Potassium 3.2 L Chloride 109 H Carbon Dioxide 21 L BUN 3 L Creatinine 0.55 Estimated GFR > 60 BUN/Creatinine Ratio 5.5 L Glucose 76 Calcium 8.5 Total Bilirubin 1.3 AST 101 H ALT 45 H Alkaline Phosphatase 190 H Total Protein 6.5 Albumin 3.7 Globulin 2.8 Albumin/Globulin Ratio 1.3 U Random Total Protein 23 H Urine Creatinine 75.22 Protein/Creatinin Ratio 0.30 Assessment and Plan Assessment and Plan Assessment and Plan narrative: 23yo at 35w3d by 8wk US with mono/di TIUP presents to L&D with c/o new onset abdominal pain, new diagnosis of pre-eclampsia with severe features Pre-eclampsia with severe features New mild range BP, pr/cr 0.3, LFTs >2x normal with maternal RUQ pain Cat 1 tracing x2 start magnesium gtt for seizure prophylaxis, cont for 24h post-delivery per protocol cont maternal BP monitoring, treat per ACOG PIH protocol pt and partner counseled on recommendation for delivery via primary section given risk of maternal decompensation as any IOL would be prolonged in setting of primaparity, maternal class 3 obesity, twin gestation; in agreement with plan of care and OR team/peds/anesthesia notified continue CEFM, toco suspect maternal RUQ pain secondary to acute capsular stretch, plan to trend LFTs q12h mono/di TIUP co-management with MFM throughout last growth US 02/02/24 (31w6d): twin A EFW 1872g/38th% twin B EFW 1696g/16th% without evidence of TTTS cfDNA low-risk, XY maternal class 3 obesity elevated 1h OGTT (145), reported normal 3h OGTT however unable to visualize values in EMR at time of admission documentation A1c ordered with admission labs, pending bariatric preoperative antibiotic dosing high risk hemorrhage maternal class 3 obesity, PIH, multiple gestation, surgical intervention set up 2u pRBC h/h 12.1/35.9 on admission, note historical maternal anemia of s/p antepartum iron transfusion x2 PPH kit/uterotonics on standby Patient is consented for primary delivery as well as transfusion of blood products as medically indicated. Risks, benefits and alternatives to proceed with procedure were reviewed, patient verbalizes understanding and desires to proceed at this time. Time Spent with Patient Total time spent with greater than 50% in coordination of care (as documented) at patient's floor/unit and/or counseling patient:: Greater than 35 minutes
[2024-02-26 06:42] LABS: Add Manual Diff / Slide Review NO; Basophils Absolute Auto 100 /uL (0-100); Basophils Percent Auto 0.5 % (0-2); Eosinophils Absolute Auto 100 /uL (0-450); Eosinophils Percent Auto 0.7 % (2-4); Hematocrit 35.4 % (36-46); Hemoglobin 11.9 g/dL (12.0-16.0); Lymphocytes Absolute Auto 2200 /uL (1100-4500); Lymphocytes Percent Auto 23.7 % (25-40); Mean Corpuscular HGB Conc 33.6 % (30-36); Mean Corpuscular Hemoglobin 28.3 PG (26-34); Mean Corpuscular Volume 84.4 fL (80-100); Monocytes Absolute Auto 600 /uL (0-900); Monocytes Percent Auto 6.7 % (3-14); Neutrophils Absolute Auto 6400 /uL (1500-7000); Neutrophils Percent Auto 68.4 % (50-75); Platelet Count 335 X10^3/uL (150-400); Red Cell Distribution Width 18.8 % (11.6-14.8); White Blood Cell Count 9.3 X10^3/uL (4.5-11.0)
[2024-02-26 06:55] LABS: Hemoglobin A1C% w Est Avg Glu 4.6 % (4.0-6.0)
[2024-02-26 07:00] VITALS: BP 141/80; PULSE 94; RESP 18; TEMP 2.4; TEMP 36.4
[2024-02-26] MEDS: MAGNESIUM SULFATE 4 GM/100 ML PIGGYBACK IV (07:50)
[2024-02-26] MEDS: CEFAZOLIN VIAL 3 GM in SODIUM CHLORIDE 0.9% 100 ML IV (08:15)
--- NOTE | 2024-02-26 08:17 | SUR.OPER ---
Supine on Padded OR bed, head on pillow, safety belt at thigh, arms secured on padded arm boards at <90 degrees abduction. Bump under right buttock. Legs uncrossed with pillow under knees, gel pad to heels, tape over blanket to lower legs.
--- NOTE | 2024-02-26 08:46 | SUR.OPER ---
FHT Baby A pre-op: 150BPM. FHT Baby B pre-op Baby B: 150BPM. Baby A born at 0834, Baby B born at 0835.
[2024-02-26] MEDS: MAGNESIUM SULFATE 20 GM/500 ML IV.SOLN IV ×2 (08:50→18:35)
[2024-02-26] MEDS: ACETAMINOPHEN IV 1,000 MG/100 ML VIAL 400 MG IV (08:54)
--- NOTE | 2024-02-26 09:41 | SUR.PHASEII ---
Patient directly to center post-delivery since no general anesthetic administered and mother stable. Decision made by Anesthesiologist. PACU nurse to center with mother. Fundus check done and spinal level assessed. Report given to L&D nurse by Anesthesiologist.
[2024-02-26] MEDS: METOCLOPRAMIDE 10 MG/2 ML INJ IV (10:12)
--- NOTE | 2024-02-26 10:53 | PM.OBCS.1 ---
Operative Date/Time/Diagnoses Date of procedure: 02/26/24 Time of procedure: 08:22 Pre-op diagnosis: 1) mono/di-twin IUP at 35w3d; 2) pre-eclampsia with severe features, remote from delivery with concern for maternal decompensation Post-op diagnosis: other (1) s/p primary LTCS; 2) pre-eclampsia with severe features ) Procedure & Clinicians Procedure: primary low-transverse section Same procedure as scheduled: Yes Indications: Pre-eclampsia with severe features, concern for maternal decompensation/remote from delivery in primiparous patient with multifetal (mono-do TIUP) gestation Surgeon: Mary White [employer] Teacher: Rustam Claudio Reason for Family [employer] Teacher: surgical expertise, acuity, high risk uterine atony, class 3 obesity Anesthesia Type: Spinal Operative Notes Findings: Twin A - cephalic presentation, vigorous Twin B - cephalic presentation, vigorous grossly normal bilateral fallopian tubes and ovaries Closure Type: primary Specimen(s): cord blood Intraoperative meds administered: Ketorolac and Pitocin Applied: Catheter Estimated Blood Loss (mL): 800 Blood products transfused: none Complications: none Baby 2: Infant Gender: Male Presentation: vertex score (1 min): 8 score (5 min): 8 Narrative: Pt was taken to the operating room and transferred to OR table.? The spinal anesthesia was placed and dosed to a surgical level per anesthesia.? The patient was placed in the supine position, prepped and draped in a sterile fashion.? Prior to incision the level of anesthesia was rechecked and found to be adequate.? A timeout was once again performed. A pfannensteil incision was made 2cm superior to the pubic symphysis.? This incision was carried down sharply to the level of the rectus fascia.? The fascia was incised sharply with knife and the incision was extended bilaterally and superiorly using bryant scissors. The superior border of the fascia was elevated with two Pee clamps and bluntly dissected off of the rectus muscles followed by incision of the median raphe with the knife.? Attention was then turned to the inferior border of the fascia which was dissected away from the underlying musculature in a similar manner down to the level of the pubic symphysis.? The rectus muscles were then in the midline and the peritoneum was identified.? The peritoneum was entered bluntly under direct visualization.? The peritoneal opening was then extended manually.? The private branch exchange operator?s hand was inserted in the abdomen and the uterus was found to be in a dextro-rotated position. The bladder blade was then inserted. The vesicouterine peritoneum was identified, elevated using DeBakey forceps and incised in the midline using Metzenbaum scissors.? The incision was carried laterally and superiorly bilaterally.? A bladder flap was further developed digitally and the bladder blade was replaced.? Next, a low transverse incision was made in the uterus using the knife.? The incision was extended laterally and superiorly bilaterally bluntly.? The private branch exchange operator?s hand was then inserted into the uterus to find an infant in the vertex OP position.? The bladder blade was removed and ?s vertex was grasped, flexed and brought to the incision where the was delivered atraumatically using fundal pressure.? The cord was doubly clamped and cut.? The infant was then passed to waiting pediatricians.? Attention was then turned to the second delivery. AROM of remaining sac performed with return of clear fluid, and once again in vertex OP position and delivered in similar fashion. The placenta was delivered via gentle traction with additional manual extraction as necessary; the placenta was then passed off the field. ? The uterus was exteriorized and the uterine cavity was wiped of all clots and debris.? The bladder blade was reinserted and the hysterotomy incision was repaired with #0 vicryl in a running locked fashion, followed by a second #0 vicryl in an imbricating fashion.? Tubes, ovaries and adnexae were visualized and noted to be grossly normal in appearance.? The uterus was replaced into the abdomen without difficulty and the hysterotomy was noted to be hemostatic off of tension.? The rectus fascia was closed using #1 vicryl in a running fashion.? The incision was irrigated and hemostasis was achieved using the bovie.? The subcutaneous space was reapproximated using 3-0 vicryl suture in a running fashion.? The skin was closed using 4-0 monocryl followed by application of steristrips and abdominal compression dressing.? All counts were correct x2.? The pt tolerated the procedure well and without difficulty. Fundal contents were expressed and fundus noted to be firm, level noted prior to patient transfer to mother/child unit in stable condition.? 1: Infant Gender: Male Presentation: vertex score (1 min): 8 score (5 min): 8 Post-operative Condition: stable Disposition: other (mother/child unit ) Aftercare: routine postop
[2024-02-26 11:24] VITALS: BP 121/56
[2024-02-26 12:16] LABS: Magnesium 3.9 mg/dL (1.6-2.3)
[2024-02-26 17:56] LABS: Alanine Aminotransferase 54 IU/L (<35); Albumin 3.6 g/dL (3.5-5.0); Albumin Globulin Ratio 1.3 (1.0-2.8); Alkaline Phosphatase 190 U/L (38-126); Aspartate Aminotransferase 71 IU/L (14-36); BUN Creatinine Ratio 4.9 (6-22); Bilirubin Total 0.7 mg/dL (0.2-1.3); Blood Urea Nitrogen 3 mg/dL (7-17); Calcium 8.1 mg/dL (8.4-10.2); Carbon Dioxide 22 mmol/L (22-32); Chloride 106 mmol/L (98-107); Estimated Glomerular Filt Rate > 60 mL/min (>60); Globulin 2.8 g/dL (1.7-4.1); Glucose 86 mg/dL (70-100); HEMOLYSIS < 15 (0-50); Potassium 3.6 mmol/L (3.4-5.1); Sodium 135 mmol/L (137-145); Total Protein 6.4 g/dL (6.3-8.2)
[2024-02-26 18:11] LABS: Magnesium 5.3 mg/dL (1.6-2.3)
[2024-02-26] MEDS: KETOROLAC 30 MG/ML VIAL IV (19:59)
[2024-02-27] MEDS: KETOROLAC 30 MG/ML VIAL IV ×2 (03:07→08:41)
[2024-02-27] MEDS: MAGNESIUM SULFATE 4 GM/100 ML PIGGYBACK IV (05:32)
[2024-02-27 06:48] LABS: Hematocrit 32.7 % (36-46)
[2024-02-27 07:04] LABS: Magnesium 6.5 mg/dL (1.6-2.3)
[2024-02-27] MEDS: MAGNESIUM SULFATE 20 GM/500 ML IV.SOLN IV (07:34)
[2024-02-27] MEDS: PRENATAL VIT,CALC/IRON/FOLIC 1 TABLET 1 TAB PO (08:41)
[2024-02-27] MEDS: ACETAMINOPHEN 325 MG TABLET 650 MG PO ×3 (08:41→21:10)
[2024-02-27] MEDS: OXYCODONE IR 5 MG TABLET PO ×2 (11:02→16:27)
[2024-02-27 12:06] LABS: Magnesium 5.2 mg/dL (1.6-2.3)
[2024-02-27] MEDS: IBUPROFEN 600 MG TABLET PO ×2 (14:54→21:10)
[2024-02-27] MEDS: DOCUSATE 100 MG CAPSULE PO (16:27)
--- NOTE | 2024-02-27 23:39 | P.PNOB_ITS ---
Subjective - OB Subjective Patient comments: no complaints, pain well controlled, tolerating diet and flatus present baby status: doing well (x2) [place] feeding status: breast and bottle feeding Date Patient Seen: 02/27/24 Time Patient Seen: 16:30 Interval history: POD#1 s/p primary C section of twins for severe preeclampsia. Doing well. BP's stable. Labs trending down. MgSO4 off. Pt voided. No HORN or visual changes. Exam Narrative Exam Narrative: Gen: Patient sitting up at side of bed, NAD Lungs: CTA bilat CV: RRR Incision: Clean, dry and intact with dresssing Ext: 1+ edema. Neg clonus. 1+ DTR's Objective Labs 02/27/24 06:35 02/26/24 17:35 Labs: Laboratory Results - last 24 hr 02/27/24 02/27/24 06:35 11:31 Hgb 11.0 L Hct 32.7 L Magnesium 6.5 H* 5.2 H* Assessment & Plan Plan day: 1 plan OB: routine postop care Comments: Follow BP's Possible d/c 02/28/24 Time Spent With Patient Time: Total time spent is greater than 50% in coordination of care (as documented) at patient's floor/unit and/or counseling patient: Time with patient: 15-24 minutes
[2024-02-28] MEDS: IBUPROFEN 600 MG TABLET PO ×4 (03:07→21:54)
[2024-02-28] MEDS: ACETAMINOPHEN 325 MG TABLET 650 MG PO ×4 (03:08→21:55)
[2024-02-28] MEDS: PRENATAL VIT,CALC/IRON/FOLIC 1 TABLET 1 TAB PO (08:54)
--- NOTE | 2024-02-28 08:54 | PM.OBPN.1 ---
Subjective - OB Subjective Patient comments: incisional pain and flatus present baby status: doing well and bottle feeding well feeding status: breast and bottle feeding Narrative: Pt resting in bed, states she is still sore at the incision and has been reluctant to ambulate more than to the bathroom. Bonding well with neonates. Supplementing with formula. MARILYN per RN Date Patient Seen: 02/28/24 Time Patient Seen: 07:45 Interval history: POD2 s/p 1LTCS, late pre-term delivery in setting of maternal HELLP Exam Vital Signs (past 8 hours): 138/78 84 afebrile Narrative Exam Narrative: resting in bed Const General: cooperative and No acute distress Nutritional Appearance: obese Orientation: alert, awake and oriented x3 Limitations: mental status not altered HENMT Head: normal to inspection Mouth: moist mucous membranes Resp Effort & Inspection: normal respiratory effort Auscultation: clear to auscultation bilaterally Cardio Pulses: normal peripheral pulses GI Other: appropriate postoperative tenderness without rebound or guarding, obese pannus, JESSICA in place c/d/i with excellent seal fundus firm << umb Other: deferred Skin General: no rashes or lesions noted Neuro General: patient alert, patient awake and patient oriented x3 Extrem General: normal to inspection Psych Appearance: grossly normal Objective Labs 02/27/24 06:35 02/26/24 17:35 Labs: Laboratory Results - last 24 hr 02/27/24 11:31 Magnesium 5.2 H* Assessment & Plan Assessment and Plan (1) Twin gestation, monochorionic/diamniotic (one placenta, two amniotic sacs): Status: Acute (2) Obesity affecting : Status: Acute (3) HELLP (hemolytic anemia/elev liver enzymes/low platelets in ): Status: Acute Plan day: 2 plan OB: routine postop care Comments: 23yo POD2 s/p 1LTCS for mono/di TIUP at late secondary to maternal HELLP syndrome remote from delivery; doing well Postop routine care n/v resolved with ROBF encourage ambulation start daily LMWH for VTE ppx, plan to dc with 10d of same HELLP dx made on admission with LFT >2x normal, new Pr/Cr 0.3 s/p 24h mag gtt for seizure ppx, LFTs noted to be downtrending immediately following delivery and thus not followed further single non-sustained mild range BP overnight continue to monitor BP maternal class 3 obesity plan for LMWH VTE ppx as above dispo: pending clinical course, anticipate dc to home POD3 Time Spent With Patient Time: Total time spent is greater than 50% in coordination of care (as documented) at patient's floor/unit and/or counseling patient: Time with patient: 15-24 minutes
[2024-02-28] MEDS: DOCUSATE 100 MG CAPSULE PO (08:55)
[2024-02-29] MEDS: IBUPROFEN 600 MG TABLET PO ×2 (05:30→11:56)
[2024-02-29] MEDS: ACETAMINOPHEN 325 MG TABLET 650 MG PO ×2 (05:31→11:55)
[2024-02-29] MEDS: ENOXAPARIN 40 MG/0.4 ML SYRINGE SUBCUT (11:57)
--- NOTE | 2024-03-07 21:55 | P.DS_ITS ---
Discharge Providers Provider Date of admission: 02/26/24 01:28 Discharge Date: 02/29/24 Primary care physician: Hanna MATUTE Provider Consults: 02/26/24 06:03 Consult to Anesthesiology Urgent Comment: Consulting Provider: Barron Nash Reason for consultation: Epidural 02/26/24 09:33 Consult to Dance Entertainer Routine Comment: Discharge provider: Amy Chavarria MD Summary Hospital Course Date Patient Seen: 02/29/24 Time Patient Seen: 07:50 Diagnoses: [place] chorionic/diamniotic twins 35 weeks' gestation Preeclampsia with severe features Remote from delivery Primary low-transverse section Hospital Course: Patient is a 24-year-old 2 para 0102 who presented on February 26, 2024 at 35-,3/7 weeks gestation who presented with right upper quadrant pain. She was found to have preeclampsia with severe features. Due to the remoteness from delivery, a primary section was performed without complication. Her course was unremarkable. She was discharged home on postop day #3. was going well. Bleeding was tapering. Pain was well controlled. No nausea or vomiting. Patient was ambulating independently. She was passing flatus. Peripartum Data Infant Delivery Method: Section Procedures: Primary low-transverse section Spinal anesthesia complications: none [place] 1: Gender: Male Disposition of : home 2: Gender: Male Disposition of : home Discharge Diagnosis (1) Twin gestation, monochorionic/diamniotic (one placenta, two amniotic sacs): Status: Acute (2) Obesity affecting : Status: Acute (3) HELLP (hemolytic anemia/elev liver enzymes/low platelets in ): Status: Acute Status at Discharge Cognitive/behavioral status at discharge: oriented Functional status at discharge: independent ambulation Overall status at discharge: patient is progressing back to baseline Time Spent with Patient Time attestation: Total time spent providing and/or coordinating discharge services: Time spent: Less than 30 minutes Objective Labs 02/27/24 06:35 02/26/24 17:35 Exam Narrative Exam Narrative: Generally: Patient is sitting up in bed, no acute distress Lungs: Clear to auscultation bilaterally Cardiovascular: Regular rate and rhythm Fundus: Firm at U +1 Incision: Clean dry and intact with rocío dressing Extremities: 1+ edema, negative [place] Discharge Plan Discharge Plan Patient Disposition: Home Provider Discharge Comment: Call with fever, chills, redness or drainage around the incision, or bleeding vaginally more than a pad in an hour Call with headache, blurred vision, spots before her eyes, or right upper quadrant Ibuprofen 600 mg every 6 hours as needed Tylenol 650 mg every 6 hours as needed Discharge orders & Medications Prescriptions: New enoxaparin [Lovenox] 40 mg/0.4 mL syringe 40 mg SUBCUT DAILY Qty: 4 0RF oxycodone 5 mg tablet 5 mg PO Q4H PRN (Reason: pain) Qty: 20 0RF Continued vit-ferrous sulfat-FA 27 mg iron- 0.8 mg tablet PO fluoride (sodium) 1.1 % paste dental Discontinued ondansetron 4 mg tablet,disintegrating 4 mg PO Q6H PRN (Reason: nausea and vomiting) Qty: 60 2RF pantoprazole [Protonix] 40 mg tablet,delayed release (DR/EC) 40 mg PO DAILY Qty: 30 4RF cephalexin 500 mg capsule 500 mg PO QID Qty: 20 0RF Follow up/Referrals: Amy Chavarria MD [Physician] - (1 week Incision check w/ Dr. Chavarria: March 02 @ 10am 6week Appt w/ Dr. Chavarria: April 11 @ 3pm) Diet/Activity/Treatments Diet: Regular Activity: No heavy lifting Skin/Wound/Dressing Care Report to your healthcare provider any signs of infection, such as:: chills, fever, increased pain and unusual drainage Dressing: Do not remove Visit Report/Discharge Packet Instructions: Pre-eclampsia, DI for , DI for Prescription Opioid Use Stand Alone Forms: Discharge: Care, Patient Portal/API, Stroke Signs & Symptoms Discharge Data Primary Care Provider: Hanna See
== END 2024-02-29 12:50 | disposition home or self-care (01) | DRG 788 ==
PROVIDERS: Admitting Provider Obstetrics & Gynecology; Referring Provider Obstetrics & Gynecology; Visit Provider Obstetrics & Gynecology
PROC: 10D00Z1 Extraction of Products of Conception, Low, Open Approach (ICD-10-PCS; CPT 59514; principal; 2024-02-26 08:00)
DX: O14.24 HELLP syndrome, complicating childbirth (principal); Z37.2 Twins, both liveborn; O99.214 Obesity complicating childbirth; Z3A.35 35 weeks gestation of pregnancy; E66.01 Morbid (severe) obesity due to excess calories; O99.824 Streptococcus B carrier state complicating childbirth
CPT/HCPCS: 36415; 59050; 59510; 59514; 76815; 80053; 82570; 83036; 83735; 84156; 85014; 85018; 85025; 86850; 86900; 86901; G0379; J0136; J0330; J0690; J1650; J1885; J2274; J2405; J2704; J2765; J3010; J3475

== ENCOUNTER 2024-03-31 00:54 | Emergency (ER) | payer OTHER, SELFPAY ==
[2024-03-31] VITALS (12 sets, daily range): BP systolic 108–156; BP diastolic 55–89; PULSE 67–84; RESP 18; TEMP 36.5; O2SAT 96–100
--- NOTE | 2024-03-31 01:14 | ED_ITS ---
HPI - General Chief complaint: Back Pain/Injury Stated complaint: post pain Time Seen by Provider: 03/31/24 01:00 History of Present Illness HPI Narrative: 24yo presents for low back pain and elevated blood pressure. Patient underwent on February 26, 2024 at 35 and 3/7wks after being found to have preeclampsia with severe features. Patient was discharged home on 02/28, reportedly without any blood pressure medication. Patient states that she just got back from a trip from [place] and noticed low back pain. She states that before she underwent a she had low back pain, which indicated her high blood pressure. She went to the Center where her blood pressure was noted to be 170 systolic and she was referred to the emergency department. Related Data Home Medications Medication Instructions Recorded Confirmed fluoride (sodium) 1.1 % dental dental 08/18/23 03/02/24 paste vitamin-ferrous sulfate tab PO 08/18/23 03/02/24 27 mg iron-folic acid 0.8 mg tablet Previous Rx's Medication Instructions Recorded enoxaparin 40 mg/0.4 mL 40 mg (0.4 mL) SUBCUT DAILY #4 mL 02/29/24 subcutaneous syringe (Lovenox) oxycodone 5 mg tablet 5 mg PO Q4H PRN pain #20 tabs 02/29/24 labetalol 200 mg tablet 200 mg PO BID #30 tabs 03/31/24 Allergies Allergy/AdvReac Type Severity Reaction Status Date / Time No Known Drug Allergies Allergy Verified 02/24/24 11:56 Exam Initial Vital Signs Initial Vital Signs: Vital Signs Pulse Rate 75 03/31/24 01:12 Pulse Oximetry 100 03/31/24 01:12 Const: Awake, alert, no acute distress, nontoxic appearing Cardiac: regular rate, regular rhythm RESP: unlabored, clear bilaterally, no wheezing GI: Soft, nontender, nondistended, Pfannenstiel incision well healed Skin: Warm, Dry, intact, no rashes Neuro: AO x3, CN II-XII grossly intact, moves all extremities Course Orders Ordered: Discontinued Medications Sodium Chloride (Normal Saline 0.9%) 1,000 mls @ 1,000 mls/hr IV BOLUS ONE Stop: 03/31/24 02:36 Last Infusion: 03/31/24 02:43 Dose: Infused Documented By: Admin: 07/20/24 01:41 Dose: 1,000 mls/hr Documented By: ANAIS Ketorolac Tromethamine (Ketorolac 30 Mg/Ml Vial) 15 mg IV NOW ONE Stop: 03/31/24 01:15 Last Admin: 03/31/24 01:26 Dose: 15 mg Documented By: Labetalol HCl (Labetalol 100 Mg Tablet) 200 mg PO NOW ONE Stop: 03/31/24 01:14 Last Admin: 03/31/24 01:42 Dose: 200 mg Documented By: ANAIS Vital Signs Vital signs: Vital Signs - 8 hr 03/31/24 01:12 03/31/24 01:25 03/31/24 01:30 Temperature 97.7 F Pulse Rate 75 71 Respiratory Rate 18 Blood Pressure 150/74 H 152/88 H Pulse Oximetry 100 100 Oxygen Delivery Method Room Air 03/31/24 01:30 03/31/24 01:35 03/31/24 01:35 Temperature Pulse Rate 73 76 Respiratory Rate Blood Pressure 156/89 H Pulse Oximetry 98 98 Oxygen Delivery Method 03/31/24 01:42 03/31/24 02:00 03/31/24 02:00 Temperature Pulse Rate 67 Respiratory Rate Blood Pressure 150/74 H 131/68 Pulse Oximetry 96 Oxygen Delivery Method 03/31/24 02:05 03/31/24 02:31 03/31/24 02:31 Temperature Pulse Rate 70 73 Respiratory Rate Blood Pressure 131/68 113/68 Pulse Oximetry 97 Oxygen Delivery Method Room Air 03/31/24 02:47 03/31/24 02:47 03/31/24 02:50 Temperature Pulse Rate 84 71 Respiratory Rate Blood Pressure 108/55 L Pulse Oximetry 100 96 Oxygen Delivery Method Room Air MDM - OB/Uterine Contractions Differential Diagnosis Differential diagnosis: Likely -induced hypertension, pre-eclampsia and eclampsia Lab Data 03/31/24 01:20 03/31/24 01:20 Labs: Lab Results 03/31/24 Range/Units 01:20 WBC 8.7 (4.5-11.0) X10^3/uL RBC 4.91 (4.0-5.2) X10^6/uL Hgb 13.6 (12.0-16.0) g/dL Hct 40.4 (36-46) % MCV 82.3 (80-100) fL MCH 27.7 (26-34) PG MCHC 33.7 (30-36) % RDW 15.8 H (11.6-14.8) % Plt Count 292 (150-400) X10^3/uL Neut % (Auto) 41.0 L (50-75) % Lymph % (Auto) 50.5 H (25-40) % [place] % (Auto) 6.1 (3-14) % Eos % (Auto) 1.7 L (2-4) % Baso % (Auto) 0.7 (0-2) % Neut # (Auto) 3600 (7588-9887) /uL Lymph # (Auto) 4400 (1619-1772) /uL [place] # (Auto) 500 (0-900) /uL Eos # (Auto) 100 (0-450) /uL Baso # (Auto) 100 (0-100) /uL Sodium 140 (137-145) mmol/L Potassium 3.6 (3.4-5.1) mmol/L Chloride 106 (98-107) mmol/L Carbon Dioxide 22 (22-32) mmol/L BUN 11 (7-17) mg/dL Creatinine 0.77 (0.52-1.04) mg/dL Estimated GFR > 60 (>60) mL/min BUN/Creatinine Ratio 14.3 (6-22) Glucose 86 (70-100) mg/dL Calcium 9.8 (8.4-10.2) mg/dL Total Bilirubin 0.6 (0.2-1.3) mg/dL AST 61 H (14-36) IU/L ALT 59 H (<35) IU/L Alkaline Phosphatase 84 (38-126) U/L Total Protein 7.6 (6.3-8.2) g/dL Albumin 4.4 (3.5-5.0) g/dL Globulin 3.2 (1.7-4.1) g/dL Albumin/Globulin Ratio 1.4 (1.0-2.8) Urine Dip Bedside Urine Glucose Negative Bedside Urine Bilirubin - Negative Bedside Urine Ketone - Negative Urine Specific [place] 1.015 Bedside Urine Occult Blood - Negative Bedside Urine pH 6.0 Bedside Urine Protein - Negative Bedside Urine Urobilinogen - Negative Bedside Urine Nitrite - Negative Bedside Urine Leukocytes - Negative Esterase MDM Narrative Medical decision making narrative: Well-appearing patient with lumbar back pain, elevated blood pressure reading in OB triage. Patient has not been measuring her blood pressures at home, uncertain chronicity of elevated blood pressures. Laboratory work and urinalysis ordered. Toradol ordered for pain. Laboratory work shows WBC count 8.7, hemoglobin 13.6, platelets 292, sodium 140, potassium 3.6, creatinine 0.77, T bili 0.6, AST 61, ALT 59, alk phos 84. Liver enzymes are mildly elevated but down trending from when she was delivered on 02/26/2024. Blood pressure corrected with single dose of p.o. labetalol. Discussed case with family intervention specialist physician Dr. Arceo, who agreed with discharge with b.i.d. labetalol and close follow up with OBGYN. Patient counseled on lab results as well as recommendations from on-call physician. Patient in agreement with plan. Discharged home in stable condition with her significant other. Discharge Plan Departure Patient Disposition: Home Clinical Impression: hypertension Instructions: Fitness Activity Restrictions/Additional Instructions: Your laboratory work today was reassuring. Your platelet counts are normal, your urinalysis did not have any protein, and your liver enzymes, while slightly elevated, has been downtrending since your . Your blood pressure was controlled with the medications given in the emergency department. This same medication has been sent to the [facility] in [place]. Take this 2 times daily for elevated blood pressures. Make sure to monitor your blood pressures at home and follow up with your OBGYN. If your blood pressures are elevated despite the twice daily blood pressure medication you may take it 3 times daily Prescriptions: New labetalol 200 mg tablet 200 mg PO BID Qty: 30 0RF No Action vit-ferrous sulfat-FA 27 mg iron- 0.8 mg tablet PO fluoride (sodium) 1.1 % paste dental enoxaparin [Lovenox] 40 mg/0.4 mL syringe 40 mg SUBCUT DAILY Qty: 4 0RF oxycodone 5 mg tablet 5 mg PO Q4H PRN (Reason: pain) Qty: 20 0RF Referrals: ProviderHanna [Primary Care Provider] - Stand Alone Forms: Patient Portal/API
[2024-03-31] MEDS: KETOROLAC 30 MG/ML VIAL 15 MG IV (01:26)
[2024-03-31 01:31] LABS: Add Manual Diff / Slide Review NO; Basophils Absolute Auto 100 /uL (0-100); Basophils Percent Auto 0.7 % (0-2); Eosinophils Absolute Auto 100 /uL (0-450); Eosinophils Percent Auto 1.7 % (2-4); Hematocrit 40.4 % (36-46); Hemoglobin 13.6 g/dL (12.0-16.0); Lymphocytes Absolute Auto 4400 /uL (1100-4500); Lymphocytes Percent Auto 50.5 % (25-40); Mean Corpuscular HGB Conc 33.7 % (30-36); Mean Corpuscular Hemoglobin 27.7 PG (26-34); Mean Corpuscular Volume 82.3 fL (80-100); Monocytes Absolute Auto 500 /uL (0-900); Monocytes Percent Auto 6.1 % (3-14); Neutrophils Absolute Auto 3600 /uL (1500-7000); Platelet Count 292 X10^3/uL (150-400); Red Blood Cell Count 4.91 X10^6/uL (4.0-5.2); Red Cell Distribution Width 15.8 % (11.6-14.8); White Blood Cell Count 8.7 X10^3/uL (4.5-11.0)
[2024-03-31 01:38] LABS: Alanine Aminotransferase 59 IU/L (<35); Albumin 4.4 g/dL (3.5-5.0); Albumin Globulin Ratio 1.4 (1.0-2.8); Alkaline Phosphatase 84 U/L (38-126); Aspartate Aminotransferase 61 IU/L (14-36); BUN Creatinine Ratio 14.3 (6-22); Bilirubin Total 0.6 mg/dL (0.2-1.3); Blood Urea Nitrogen 11 mg/dL (7-17); Calcium 9.8 mg/dL (8.4-10.2); Carbon Dioxide 22 mmol/L (22-32); Chloride 106 mmol/L (98-107); Estimated Glomerular Filt Rate > 60 mL/min (>60); Globulin 3.2 g/dL (1.7-4.1); Glucose 86 mg/dL (70-100); HEMOLYSIS 23 (0-50); Potassium 3.6 mmol/L (3.4-5.1); Sodium 140 mmol/L (137-145); Total Protein 7.6 g/dL (6.3-8.2)
[2024-03-31] MEDS: SODIUM CHLORIDE 0.9% 1,000 ML 1000 ML IV (01:41)
[2024-03-31] MEDS: LABETALOL 100 MG TABLET 200 MG PO (01:42)
== END 2024-03-31 03:14 | disposition home or self-care (01) ==
PROVIDERS: Emergency Provider Emergency Medicine
DX: O16.5 Unspecified maternal hypertension, complicating the puerperium (principal); M54.50 Low back pain, unspecified
CPT/HCPCS: 36415; 80053; 81003; 85025; 96361; 96374; 99284; J1885

== ENCOUNTER → 2024-05-23 16:07 | Outpatient (CLI) | payer OTHER, SELFPAY ==
--- NOTE | 2024-05-23 16:08 | DI.US.S_ITS ---
PROCEDURE: US PELVIC COMPLETE INDICATIONS: abnormal vaginal bleeding/ TECHNIQUE: Real-time scanning was performed of the pelvic organs, with image documentation. Additional endovaginal scanning was necessary due to incomplete visualization of the adnexal and endometrial structures by transabdominal scanning. COMPARISON: [facility], US, US OB >= 14 WEEKS FETUS, 02/24/2024, 12:16. FINDINGS: Uterus: Uterus is anteverted and enlarged in size at 10.0 x 4.1 x 5.5 cm. The myometrium is homogeneous. The endometrium measures 4.4 mm combined thickness. IUD is present in appropriate location. Ovaries: The right ovary measures 3.9 x 1.7 x 2.4 cm, with a calculated ovarian volume of 8.2 cc. The left ovary measures 2.1 x 1.7 x 1.9 cm, with a calculated ovarian volume of 3 point cc. The ovaries have a normal sonographic appearance. Less than 12 follicles can be seen in each ovary. No adnexal masses are seen. Other: No pathologic free abdominal or pelvic fluid. IMPRESSION: IUD in appropriate location. Otherwise, unremarkable. We strive to produce accurate, complete, and clear reports of imaging services. To assist us in improving patient care, this report was composed using standard report templates and voice recognition software. Therefore, it may contain abnormal punctuation, insertions and/or omissions. Occasional wrong-word or sound-alike substitutions may occur. Though we review the report and make efforts to correct it, we do recommend that the report be read carefully in proper context to recognize any text inaccuracies. Dictated by: Naima Diaz M.D. on 05/24/2024 at 12:01 Approved by: Naima Diaz M.D. on 05/24/2024 at 12:03
== END ==
PROVIDERS: Referring Provider Obstetrics & Gynecology; Visit Provider Obstetrics & Gynecology
DX: N92.6 Irregular menstruation, unspecified (principal); Z97.5 Presence of (intrauterine) contraceptive device
CPT/HCPCS: 76856

== ENCOUNTER 2024-11-09 10:55 | Emergency (ER) | payer OTHER, SELFPAY ==
[2024-11-09] VITALS (32 sets, daily range): BP systolic 98–127; BP diastolic 54–81; PULSE 39–83; RESP 12–48; TEMP 37; O2SAT 95–100; BMI 37.4
--- NOTE | 2024-11-09 11:36 | EKG_ITS ---
[address] [address] Test Date: 2024-11-09 Pat Name: Georgina Dillard Department: [facility] Room: Gender: Female Search Specialist: BILLY : 2000 Requested By: Order Number: [id number] Reading MD: Andi Kwan Measurements Intervals [place] Rate: 43 P: 35 CO: 142 QRS: 22 QRSD: 90 T: 32 QT: 460 QTc: 388 Interpretive Statements Marked sinus bradycardia Electronically Signed On 11-11-2024 18:56:12 PST by Andi Kwan
[2024-11-09 11:37] LABS: Add Manual Diff / Slide Review NO; Basophils Absolute Auto 100 /uL (0-100); Basophils Percent Auto 0.8 % (0-2); Eosinophils Absolute Auto 100 /uL (0-450); Eosinophils Percent Auto 1.1 % (2-4); Hematocrit 40.5 % (36-46); Hemoglobin 13.6 g/dL (12.0-16.0); Lymphocytes Absolute Auto 2800 /uL (1100-4500); Lymphocytes Percent Auto 42.4 % (25-40); Mean Corpuscular HGB Conc 33.5 % (30-36); Mean Corpuscular Hemoglobin 28.3 PG (26-34); Mean Corpuscular Volume 84.5 fL (80-100); Monocytes Absolute Auto 400 /uL (0-900); Monocytes Percent Auto 5.3 % (3-14); Neutrophils Absolute Auto 3300 /uL (1500-7000); Neutrophils Percent Auto 50.4 % (50-75); Platelet Count 314 X10^3/uL (150-400); Red Blood Cell Count 4.79 X10^6/uL (4.0-5.2); Red Cell Distribution Width 13.7 % (11.6-14.8); White Blood Cell Count 6.6 X10^3/uL (4.5-11.0)
--- NOTE | 2024-11-09 11:41 | ED.ABDPAIN ---
HPI - Abdominal Pain <Rosa Sheridan PA-C - Last Filed: 11/09/24 19:40> General Chief Complaint: Abdominal Pain Stated Complaint: Sharp stomach pain , Dizziness, almost passed out Time Seen by Provider: 11/09/24 11:39 History of Present Illness HPI narrative: Ms. Dillard is a very pleasant 24-year-old female, active duty [employer], with a past medical history of twin C-sec 02/26/24 complicated by HELLP syndrome, with loss of child 3 months ago that presents to the emergency department for sudden and severe right lower quadrant abdominal pain that started at approximately 8:00 a.m. this morning. Patient reports that she bent down to tie her shoes to get ready for work and she developed sudden pain in the right lower quadrant that she describes as sharp. States it at this time the pain is primarily in the periumbilical region but radiates down to the right lower quadrant but the entire right side of her abdomen feels tender and painful. States that pain somewhat coming and going but is never gone away completely since this morning. She is decreased appetite and nausea. No vomiting, diarrhea, constipation, dysuria, vaginal discharge or bleeding. No fevers or chills. She felt lightheaded while driving here due to the severity of the pain. She has taken no medications prior to arrival. Denies any other abdominal surgeries besides her . She has not currently taking any prescription medications. She does have a Mirena IUD in place. Related Data Home Medications Medication Instructions Recorded Confirmed fluoride (sodium) 1.1 % dental dental 08/18/23 04/11/24 paste vitamin-ferrous sulfate tab PO 08/18/23 04/11/24 27 mg iron-folic acid 0.8 mg tablet levonorgestrel 21 mcg/24 hr (up to intrauterine 04/11/24 04/11/24 8 years) 52 mg intrauterine device (Mirena) Previous Rx's Medication Instructions Recorded enoxaparin 40 mg/0.4 mL 40 mg (0.4 mL) SUBCUT DAILY #4 mL 02/29/24 subcutaneous syringe (Lovenox) oxycodone 5 mg tablet 5 mg PO Q4H PRN pain #20 tabs 02/29/24 labetalol 200 mg tablet 200 mg PO BID #30 tabs 03/31/24 naproxen 500 mg tablet 500 mg PO BID PRN pain #20 tabs 11/09/24 Allergies Allergy/AdvReac Type Severity Reaction Status Date / Time No Known Drug Allergies Allergy Verified 04/11/24 13:41 Review of Systems <Rosa Sheridan PA-C - Last Filed: 11/09/24 19:40> Review of Systems ROS Unobtainable: All systems reviewed & are unremarkable except as noted in HPI and below Patient History <Rosa Sheridan PA-C - Last Filed: 11/09/24 19:40> Medical History HELLP (hemolytic anemia/elev liver enzymes/low platelets in ) Diastasis recti Vertigo (~2020) Tinnitus (~2020) Chlamydia (~2017) Ovarian cyst (~2018) Hearing loss in left ear (~2018) Surgical History Status post section No pertinent past surgical history Family History Father Hearing loss Hyperlipidemia Carpal tunnel syndrome Hypertension Brother ADHD Grandmother Skin cancer Grandfather Heart attack Hypertension Grandfather Early onset Alzheimer's dementia Aunt Breast cancer Uncle Liver cancer Drug abuse Family/Other Twin Social History marital status: number of children: 0 household members: spouse and friend(s) lives independently: Yes caregiver/support person: No pets and animals: Yes (2 cats) education level: high school occupational status: employed current occupational exposures/hazards: No special hazel needs: No travel history: over 6 months ago seatbelt use: always water heater temp set < 120 deg: Yes working smoke detector in home: Yes fire extinguisher in home: Yes carbon monox detector in home: Yes firearms in home: No do you feel safe at home: Yes Smoking Status: Current every day smoker second hand exposure: Yes ( vapes) alcohol intake: former substance use type: does not use during the past year weight has: increased > 10 lbs well-balanced diet: daily or most days daily servings fruits/ve-4 caffeine: No (stopped w/ ) Type(s) of exercise: walking Smoking Status: Current every day smoker tobacco type: vaping Exam <Rosa Sheridan PA-C - Last Filed: 11/09/24 19:40> Narrative Exam Narrative: GENERAL: 24 year old patient appears stated age. Well-developed patient, in no acute distress, resting in stretcher in mild discomfort. HEAD: Atraumatic. Normocephalic. NECK: Trachea midline. Cervical ROM intact. CARDIOVASCULAR: Decreased rate and regular rhythm. RESPIRATORY: ?Nonlabored respirations. ?Speaking in clear, full sentences. ?Clear to auscultation. Breath sounds equal bilaterally. No wheezes, rales, or rhonchi. ? GASTROINTESTINAL: Abdominal tenderness periumbilical region, right lower quadrant, right upper guarding. No rebound tenderness; abdomen is soft, nondistended, bowel sounds present EXTREMITIES: No edema or joint tenderness. BACK: No CVA tenderness NEURO: AOx3. ?Clear speech. ?Moves all 4 extremities appropriately. SKIN: No rash or erythema of visible areas Initial Vital Signs Initial Vital Signs: Vital Signs Temperature 98.6 F 11/09/24 11:15 Pulse Rate 46 L 11/09/24 11:15 Respiratory Rate 18 11/09/24 11:15 Blood Pressure 118/63 11/09/24 11:15 Pulse Oximetry 98 11/09/24 11:15 Oxygen Delivery Method Room Air 11/09/24 11:15 <Jono Lange MD - Last Filed: 11/12/24 07:29> Initial Vital Signs Initial Vital Signs: Vital Signs Temperature 98.6 F 11/09/24 11:15 Pulse Rate 46 L 11/09/24 11:15 Respiratory Rate 18 11/09/24 11:15 Blood Pressure 118/63 11/09/24 11:15 Pulse Oximetry 98 11/09/24 11:15 Oxygen Delivery Method Room Air 11/09/24 11:15 Course <Rosa Sheridan PA-C - Last Filed: 11/09/24 19:40> Orders Ordered: Discontinued Medications Acetaminophen (Acetaminophen 325 Mg Tablet) 650 mg PO NOW ONE Stop: 11/09/24 11:55 Last Admin: 11/09/24 11:58 Dose: 650 mg Documented By: ES Sodium Chloride (Normal Saline 0.9%) 1,000 mls @ 1,000 mls/hr IV BOLUS ONE Stop: 11/09/24 12:38 Last Infusion: 11/09/24 14:00 Dose: Infused Documented By: Admin: 11/09/24 11:47 Dose: 1,000 mls/hr Documented By: CONI Sodium Chloride (Normal Saline 0.9%) 1,000 mls @ 1,000 mls/hr IV BOLUS ONE Stop: 11/09/24 17:46 Last Infusion: 11/09/24 18:38 Dose: Infused Documented By: Admin: 11/09/24 16:57 Dose: 1,000 mls/hr Documented By: SPF Ketorolac Tromethamine (Ketorolac 30 Mg/Ml Vial) 15 mg IV NOW ONE Stop: 11/09/24 11:55 Last Admin: 11/09/24 11:58 Dose: 15 mg Documented By: CONI Ondansetron HCl (Ondansetron 4 Mg/2 Ml Inj) 4 mg IV NOW PRN PRN Reason: Nausea And Vomiting Ondansetron HCl (Ondansetron 4 Mg Odt) 4 mg PO NOW PRN PRN Reason: Nausea And Vomiting Ondansetron HCl (Ondansetron 4 Mg/2 Ml Inj) 4 mg IV NOW ONE Stop: 11/09/24 11:40 Last Admin: 11/09/24 11:47 Dose: 4 mg Documented By: CONI Consultations Consultation #1: Consulted [facility] cardiology Dr. Farzana Campbell. Discussed patient case and concerns for bradycardia upper 30s/low 40s not improving with pain control or fluids. He states that patient is low risk for heart block given otherwise young and healthy however if she has low blood pressures she may benefit from overnight observation/telemetry for further evaluation. Consultation #2: Dr. Neville spoke with cardiology Dr. Campbell, he is agreeable to pt being admitted to [facility] if needed for persistent bradycardia Vital Signs Vital signs: Vital Signs - 8 hr 11/09/24 12:30 11/09/24 12:31 11/09/24 12:31 Pulse Rate 43 L 41 L Pulse Rate [Orthostatic Lying] Pulse Rate [Orthostatic Sitting] Pulse Rate [Orthostatic Standing] Respiratory Rate 29 H 15 Blood Pressure 105/59 L Blood Pressure [Orthostatic Lying] Blood Pressure [Orthostatic Sitting] Blood Pressure [Orthostatic Standing] Pulse Oximetry 100 99 Oxygen Delivery Method Room Air 11/09/24 12:49 11/09/24 12:49 11/09/24 12:50 Pulse Rate 43 L 42 L Pulse Rate [Orthostatic Lying] Pulse Rate [Orthostatic Sitting] Pulse Rate [Orthostatic Standing] Respiratory Rate 12 14 Blood Pressure 104/59 L Blood Pressure [Orthostatic Lying] Blood Pressure [Orthostatic Sitting] Blood Pressure [Orthostatic Standing] Pulse Oximetry 100 100 Oxygen Delivery Method 11/09/24 12:50 11/09/24 13:00 11/09/24 13:01 Pulse Rate 41 L Pulse Rate [Orthostatic Lying] Pulse Rate [Orthostatic Sitting] Pulse Rate [Orthostatic Standing] Respiratory Rate 17 Blood Pressure 112/61 108/56 L Blood Pressure [Orthostatic Lying] Blood Pressure [Orthostatic Sitting] Blood Pressure [Orthostatic Standing] Pulse Oximetry 100 Oxygen Delivery Method 11/09/24 13:01 11/09/24 13:11 11/09/24 13:11 Pulse Rate 42 L 40 L Pulse Rate [Orthostatic Lying] Pulse Rate [Orthostatic Sitting] Pulse Rate [Orthostatic Standing] Respiratory Rate 16 18 Blood Pressure 113/56 L Blood Pressure [Orthostatic Lying] Blood Pressure [Orthostatic Sitting] Blood Pressure [Orthostatic Standing] Pulse Oximetry 100 100 Oxygen Delivery Method 11/09/24 13:18 11/09/24 13:18 11/09/24 13:21 Pulse Rate 39 L 41 L Pulse Rate [Orthostatic Lying] Pulse Rate [Orthostatic Sitting] Pulse Rate [Orthostatic Standing] Respiratory Rate 19 15 Blood Pressure 105/59 L Blood Pressure [Orthostatic Lying] Blood Pressure [Orthostatic Sitting] Blood Pressure [Orthostatic Standing] Pulse Oximetry 100 Oxygen Delivery Method 11/09/24 13:21 11/09/24 13:23 11/09/24 13:23 Pulse Rate 44 L Pulse Rate [Orthostatic Lying] Pulse Rate [Orthostatic Sitting] Pulse Rate [Orthostatic Standing] Respiratory Rate 19 Blood Pressure 104/60 101/58 L Blood Pressure [Orthostatic Lying] Blood Pressure [Orthostatic Sitting] Blood Pressure [Orthostatic Standing] Pulse Oximetry Oxygen Delivery Method 11/09/24 13:30 11/09/24 13:32 11/09/24 14:00 Pulse Rate 50 L 40 L Pulse Rate [Orthostatic Lying] 40 L Pulse Rate [Orthostatic Sitting] 41 L Pulse Rate [Orthostatic Standing] 42 L Respiratory Rate 19 17 Blood Pressure Blood Pressure [Orthostatic Lying] 105/59 L Blood Pressure [Orthostatic Sitting] 104/60 Blood Pressure [Orthostatic Standing] 101/58 L Pulse Oximetry 100 100 Oxygen Delivery Method 11/09/24 14:30 11/09/24 15:00 11/09/24 15:30 Pulse Rate 39 L 45 L 40 L Pulse Rate [Orthostatic Lying] Pulse Rate [Orthostatic Sitting] Pulse Rate [Orthostatic Standing] Respiratory Rate 15 13 20 Blood Pressure Blood Pressure [Orthostatic Lying] Blood Pressure [Orthostatic Sitting] Blood Pressure [Orthostatic Standing] Pulse Oximetry 100 95 100 Oxygen Delivery Method 11/09/24 15:41 11/09/24 15:41 11/09/24 15:50 Pulse Rate 40 L 39 L Pulse Rate [Orthostatic Lying] Pulse Rate [Orthostatic Sitting] Pulse Rate [Orthostatic Standing] Respiratory Rate 16 18 Blood Pressure 109/56 L Blood Pressure [Orthostatic Lying] Blood Pressure [Orthostatic Sitting] Blood Pressure [Orthostatic Standing] Pulse Oximetry 100 100 Oxygen Delivery Method 11/09/24 15:50 11/09/24 16:00 11/09/24 16:00 Pulse Rate 39 L Pulse Rate [Orthostatic Lying] Pulse Rate [Orthostatic Sitting] Pulse Rate [Orthostatic Standing] Respiratory Rate 18 Blood Pressure 108/59 L 98/54 L Blood Pressure [Orthostatic Lying] Blood Pressure [Orthostatic Sitting] Blood Pressure [Orthostatic Standing] Pulse Oximetry 100 Oxygen Delivery Method Room Air 11/09/24 16:10 11/09/24 16:10 11/09/24 16:20 Pulse Rate 41 L 41 L Pulse Rate [Orthostatic Lying] Pulse Rate [Orthostatic Sitting] Pulse Rate [Orthostatic Standing] Respiratory Rate 18 20 Blood Pressure 104/58 L Blood Pressure [Orthostatic Lying] Blood Pressure [Orthostatic Sitting] Blood Pressure [Orthostatic Standing] Pulse Oximetry 100 100 Oxygen Delivery Method 11/09/24 16:20 11/09/24 16:30 11/09/24 16:30 Pulse Rate 40 L Pulse Rate [Orthostatic Lying] Pulse Rate [Orthostatic Sitting] Pulse Rate [Orthostatic Standing] Respiratory Rate 21 Blood Pressure 105/57 L 108/61 Blood Pressure [Orthostatic Lying] Blood Pressure [Orthostatic Sitting] Blood Pressure [Orthostatic Standing] Pulse Oximetry 100 Oxygen Delivery Method 11/09/24 17:00 11/09/24 17:00 11/09/24 17:30 Pulse Rate 44 L 45 L Pulse Rate [Orthostatic Lying] Pulse Rate [Orthostatic Sitting] Pulse Rate [Orthostatic Standing] Respiratory Rate 20 14 Blood Pressure 107/59 L Blood Pressure [Orthostatic Lying] Blood Pressure [Orthostatic Sitting] Blood Pressure [Orthostatic Standing] Pulse Oximetry 100 100 Oxygen Delivery Method 11/09/24 17:31 11/09/24 17:31 11/09/24 18:00 Pulse Rate 45 L 83 Pulse Rate [Orthostatic Lying] Pulse Rate [Orthostatic Sitting] Pulse Rate [Orthostatic Standing] Respiratory Rate 16 41 H Blood Pressure 100/57 L Blood Pressure [Orthostatic Lying] Blood Pressure [Orthostatic Sitting] Blood Pressure [Orthostatic Standing] Pulse Oximetry 100 100 Oxygen Delivery Method 11/09/24 18:01 11/09/24 18:01 11/09/24 18:30 Pulse Rate 75 64 Pulse Rate [Orthostatic Lying] Pulse Rate [Orthostatic Sitting] Pulse Rate [Orthostatic Standing] Respiratory Rate 48 H 19 Blood Pressure 127/81 Blood Pressure [Orthostatic Lying] Blood Pressure [Orthostatic Sitting] Blood Pressure [Orthostatic Standing] Pulse Oximetry 100 98 Oxygen Delivery Method 11/09/24 18:31 11/09/24 18:31 11/09/24 19:00 Pulse Rate 64 76 Pulse Rate [Orthostatic Lying] Pulse Rate [Orthostatic Sitting] Pulse Rate [Orthostatic Standing] Respiratory Rate 22 23 Blood Pressure 114/57 L Blood Pressure [Orthostatic Lying] Blood Pressure [Orthostatic Sitting] Blood Pressure [Orthostatic Standing] Pulse Oximetry 100 99 Oxygen Delivery Method Room Air 11/09/24 19:00 11/09/24 19:19 Pulse Rate 67 Pulse Rate [Orthostatic Lying] Pulse Rate [Orthostatic Sitting] Pulse Rate [Orthostatic Standing] Respiratory Rate Blood Pressure 122/59 L Blood Pressure [Orthostatic Lying] Blood Pressure [Orthostatic Sitting] Blood Pressure [Orthostatic Standing] Pulse Oximetry Oxygen Delivery Method <Jono Lange MD - Last Filed: 11/12/24 07:29> Orders Ordered: Discontinued Medications Acetaminophen (Acetaminophen 325 Mg Tablet) 650 mg PO NOW ONE Stop: 11/09/24 11:55 Last Admin: 11/09/24 11:58 Dose: 650 mg Documented By: ES Sodium Chloride (Normal Saline 0.9%) 1,000 mls @ 1,000 mls/hr IV BOLUS ONE Stop: 11/09/24 12:38 Last Infusion: 11/09/24 14:00 Dose: Infused Documented By: Admin: 11/09/24 11:47 Dose: 1,000 mls/hr Documented By: CONI Sodium Chloride (Normal Saline 0.9%) 1,000 mls @ 1,000 mls/hr IV BOLUS ONE Stop: 11/09/24 17:46 Last Infusion: 11/09/24 18:38 Dose: Infused Documented By: Admin: 11/09/24 16:57 Dose: 1,000 mls/hr Documented By: JOHN Ketorolac Tromethamine (Ketorolac 30 Mg/Ml Vial) 15 mg IV NOW ONE Stop: 11/09/24 11:55 Last Admin: 11/09/24 11:58 Dose: 15 mg Documented By: CONI Ondansetron HCl (Ondansetron 4 Mg/2 Ml Inj) 4 mg IV NOW PRN PRN Reason: Nausea And Vomiting Ondansetron HCl (Ondansetron 4 Mg Odt) 4 mg PO NOW PRN PRN Reason: Nausea And Vomiting Ondansetron HCl (Ondansetron 4 Mg/2 Ml Inj) 4 mg IV NOW ONE Stop: 11/09/24 11:40 Last Admin: 11/09/24 11:47 Dose: 4 mg Documented By: CONI Vital Signs Vital signs: Vital Signs - 8 hr 11/09/24 12:30 11/09/24 12:31 11/09/24 12:31 Pulse Rate 43 L 41 L Pulse Rate [Orthostatic Lying] Pulse Rate [Orthostatic Sitting] Pulse Rate [Orthostatic Standing] Respiratory Rate 29 H 15 Blood Pressure 105/59 L Blood Pressure [Orthostatic Lying] Blood Pressure [Orthostatic Sitting] Blood Pressure [Orthostatic Standing] Pulse Oximetry 100 99 Oxygen Delivery Method Room Air 11/09/24 12:49 11/09/24 12:49 11/09/24 12:50 Pulse Rate 43 L 42 L Pulse Rate [Orthostatic Lying] Pulse Rate [Orthostatic Sitting] Pulse Rate [Orthostatic Standing] Respiratory Rate 12 14 Blood Pressure 104/59 L Blood Pressure [Orthostatic Lying] Blood Pressure [Orthostatic Sitting] Blood Pressure [Orthostatic Standing] Pulse Oximetry 100 100 Oxygen Delivery Method 11/09/24 12:50 11/09/24 13:00 11/09/24 13:01 Pulse Rate 41 L Pulse Rate [Orthostatic Lying] Pulse Rate [Orthostatic Sitting] Pulse Rate [Orthostatic Standing] Respiratory Rate 17 Blood Pressure 112/61 108/56 L Blood Pressure [Orthostatic Lying] Blood Pressure [Orthostatic Sitting] Blood Pressure [Orthostatic Standing] Pulse Oximetry 100 Oxygen Delivery Method 11/09/24 13:01 11/09/24 13:11 11/09/24 13:11 Pulse Rate 42 L 40 L Pulse Rate [Orthostatic Lying] Pulse Rate [Orthostatic Sitting] Pulse Rate [Orthostatic Standing] Respiratory Rate 16 18 Blood Pressure 113/56 L Blood Pressure [Orthostatic Lying] Blood Pressure [Orthostatic Sitting] Blood Pressure [Orthostatic Standing] Pulse Oximetry 100 100 Oxygen Delivery Method 11/09/24 13:18 11/09/24 13:18 11/09/24 13:21 Pulse Rate 39 L 41 L Pulse Rate [Orthostatic Lying] Pulse Rate [Orthostatic Sitting] Pulse Rate [Orthostatic Standing] Respiratory Rate 19 15 Blood Pressure 105/59 L Blood Pressure [Orthostatic Lying] Blood Pressure [Orthostatic Sitting] Blood Pressure [Orthostatic Standing] Pulse Oximetry 100 Oxygen Delivery Method 11/09/24 13:21 11/09/24 13:23 11/09/24 13:23 Pulse Rate 44 L Pulse Rate [Orthostatic Lying] Pulse Rate [Orthostatic Sitting] Pulse Rate [Orthostatic Standing] Respiratory Rate 19 Blood Pressure 104/60 101/58 L Blood Pressure [Orthostatic Lying] Blood Pressure [Orthostatic Sitting] Blood Pressure [Orthostatic Standing] Pulse Oximetry Oxygen Delivery Method 11/09/24 13:30 11/09/24 13:32 11/09/24 14:00 Pulse Rate 50 L 40 L Pulse Rate [Orthostatic Lying] 40 L Pulse Rate [Orthostatic Sitting] 41 L Pulse Rate [Orthostatic Standing] 42 L Respiratory Rate 19 17 Blood Pressure Blood Pressure [Orthostatic Lying] 105/59 L Blood Pressure [Orthostatic Sitting] 104/60 Blood Pressure [Orthostatic Standing] 101/58 L Pulse Oximetry 100 100 Oxygen Delivery Method 11/09/24 14:30 11/09/24 15:00 11/09/24 15:30 Pulse Rate 39 L 45 L 40 L Pulse Rate [Orthostatic Lying] Pulse Rate [Orthostatic Sitting] Pulse Rate [Orthostatic Standing] Respiratory Rate 15 13 20 Blood Pressure Blood Pressure [Orthostatic Lying] Blood Pressure [Orthostatic Sitting] Blood Pressure [Orthostatic Standing] Pulse Oximetry 100 95 100 Oxygen Delivery Method 11/09/24 15:41 11/09/24 15:41 11/09/24 15:50 Pulse Rate 40 L 39 L Pulse Rate [Orthostatic Lying] Pulse Rate [Orthostatic Sitting] Pulse Rate [Orthostatic Standing] Respiratory Rate 16 18 Blood Pressure 109/56 L Blood Pressure [Orthostatic Lying] Blood Pressure [Orthostatic Sitting] Blood Pressure [Orthostatic Standing] Pulse Oximetry 100 100 Oxygen Delivery Method 11/09/24 15:50 11/09/24 16:00 11/09/24 16:00 Pulse Rate 39 L Pulse Rate [Orthostatic Lying] Pulse Rate [Orthostatic Sitting] Pulse Rate [Orthostatic Standing] Respiratory Rate 18 Blood Pressure 108/59 L 98/54 L Blood Pressure [Orthostatic Lying] Blood Pressure [Orthostatic Sitting] Blood Pressure [Orthostatic Standing] Pulse Oximetry 100 Oxygen Delivery Method Room Air 11/09/24 16:10 11/09/24 16:10 11/09/24 16:20 Pulse Rate 41 L 41 L Pulse Rate [Orthostatic Lying] Pulse Rate [Orthostatic Sitting] Pulse Rate [Orthostatic Standing] Respiratory Rate 18 20 Blood Pressure 104/58 L Blood Pressure [Orthostatic Lying] Blood Pressure [Orthostatic Sitting] Blood Pressure [Orthostatic Standing] Pulse Oximetry 100 100 Oxygen Delivery Method 11/09/24 16:20 11/09/24 16:30 11/09/24 16:30 Pulse Rate 40 L Pulse Rate [Orthostatic Lying] Pulse Rate [Orthostatic Sitting] Pulse Rate [Orthostatic Standing] Respiratory Rate 21 Blood Pressure 105/57 L 108/61 Blood Pressure [Orthostatic Lying] Blood Pressure [Orthostatic Sitting] Blood Pressure [Orthostatic Standing] Pulse Oximetry 100 Oxygen Delivery Method 11/09/24 17:00 11/09/24 17:00 11/09/24 17:30 Pulse Rate 44 L 45 L Pulse Rate [Orthostatic Lying] Pulse Rate [Orthostatic Sitting] Pulse Rate [Orthostatic Standing] Respiratory Rate 20 14 Blood Pressure 107/59 L Blood Pressure [Orthostatic Lying] Blood Pressure [Orthostatic Sitting] Blood Pressure [Orthostatic Standing] Pulse Oximetry 100 100 Oxygen Delivery Method 11/09/24 17:31 11/09/24 17:31 11/09/24 18:00 Pulse Rate 45 L 83 Pulse Rate [Orthostatic Lying] Pulse Rate [Orthostatic Sitting] Pulse Rate [Orthostatic Standing] Respiratory Rate 16 41 H Blood Pressure 100/57 L Blood Pressure [Orthostatic Lying] Blood Pressure [Orthostatic Sitting] Blood Pressure [Orthostatic Standing] Pulse Oximetry 100 100 Oxygen Delivery Method 11/09/24 18:01 11/09/24 18:01 11/09/24 18:30 Pulse Rate 75 64 Pulse Rate [Orthostatic Lying] Pulse Rate [Orthostatic Sitting] Pulse Rate [Orthostatic Standing] Respiratory Rate 48 H 19 Blood Pressure 127/81 Blood Pressure [Orthostatic Lying] Blood Pressure [Orthostatic Sitting] Blood Pressure [Orthostatic Standing] Pulse Oximetry 100 98 Oxygen Delivery Method 11/09/24 18:31 11/09/24 18:31 11/09/24 19:00 Pulse Rate 64 76 Pulse Rate [Orthostatic Lying] Pulse Rate [Orthostatic Sitting] Pulse Rate [Orthostatic Standing] Respiratory Rate 22 23 Blood Pressure 114/57 L Blood Pressure [Orthostatic Lying] Blood Pressure [Orthostatic Sitting] Blood Pressure [Orthostatic Standing] Pulse Oximetry 100 99 Oxygen Delivery Method Room Air 11/09/24 19:00 11/09/24 19:19 Pulse Rate 67 Pulse Rate [Orthostatic Lying] Pulse Rate [Orthostatic Sitting] Pulse Rate [Orthostatic Standing] Respiratory Rate Blood Pressure 122/59 L Blood Pressure [Orthostatic Lying] Blood Pressure [Orthostatic Sitting] Blood Pressure [Orthostatic Standing] Pulse Oximetry Oxygen Delivery Method MDM - Abdominal Pain <Rosa Sheridan PA-C - Last Filed: 11/09/24 19:40> Medical Records Attestation: I reviewed the patient's medical records. Lab Data 11/09/24 11:20 11/09/24 11:20 Labs: Lab Results 11/09/24 Range/Units 11:20 WBC 6.6 (4.5-11.0) X10^3/uL RBC 4.79 (4.0-5.2) X10^6/uL Hgb 13.6 (12.0-16.0) g/dL Hct 40.5 (36-46) % MCV 84.5 (80-100) fL MCH 28.3 (26-34) PG MCHC 33.5 (30-36) % RDW 13.7 (11.6-14.8) % Plt Count 314 (150-400) X10^3/uL Neut % (Auto) 50.4 (50-75) % Lymph % (Auto) 42.4 H (25-40) % [place] % (Auto) 5.3 (3-14) % Eos % (Auto) 1.1 L (2-4) % Baso % (Auto) 0.8 (0-2) % Neut # (Auto) 3300 (2252-7094) /uL Lymph # (Auto) 2800 (6809-7480) /uL [place] # (Auto) 400 (0-900) /uL Eos # (Auto) 100 (0-450) /uL Baso # (Auto) 100 (0-100) /uL Sodium 139 (137-145) mmol/L Potassium 4.1 (3.4-5.1) mmol/L Chloride 105 (98-107) mmol/L Carbon Dioxide 23 (22-32) mmol/L BUN 8 (7-17) mg/dL Creatinine 0.77 (0.52-1.04) mg/dL Estimated GFR > 60 (>60) mL/min BUN/Creatinine Ratio 10.4 (6-22) Glucose 78 (70-100) mg/dL Calcium 9.4 (8.4-10.2) mg/dL Magnesium 1.8 (1.6-2.3) mg/dL Total Bilirubin 0.9 (0.2-1.3) mg/dL AST 48 H (14-36) IU/L ALT 55 H (<35) IU/L Alkaline Phosphatase 56 (38-126) U/L Total Creatine Kinase 128 (30-135) U/L Troponin I < 0.012 (0.01-0.034) ng/mL Total Protein 7.9 (6.3-8.2) g/dL Albumin 4.8 (3.5-5.0) g/dL Globulin 3.1 (1.7-4.1) g/dL Albumin/Globulin Ratio 1.5 (1.0-2.8) Lipase 108 (23-300) U/L TSH 1.19 (0.47-4.68) uIU/mL U Opiates 300ng/mL cut Negative (Negative) Ur Oxycodone Screen Negative (Negative) Urine Methadone Screen Negative (Negative) Ur Barbiturates Screen Negative (Negative) U Tricyclic Antidepress Negative (Negative) Ur Phencyclidine Scrn Negative (Negative) Ur Amphetamines Screen Negative (Negative) U Methamphetamines Scrn Negative (Negative) Ur MDMA Scrn (Ecstasy) Negative (Negative) U Benzodiazepines Scrn Negative (Negative) Urine Cocaine Screen Negative (Negative) U Marijuana (THC) Screen Negative (Negative) Urine pH Normal (Normal) Urine Specific [place] Normal (Normal) Ur Creatinine Normal (Normal) Point of care testing: Point of Care Testing Test Results Negative Urine Dip Bedside Urine Glucose Negative Bedside Urine Bilirubin - Negative Bedside Urine Ketone - Negative Urine Specific [place] 1.010 Bedside Urine Occult Blood - Negative Bedside Urine pH 6.0 Bedside Urine Protein - Negative Bedside Urine Urobilinogen - Negative Bedside Urine Nitrite - Negative Bedside Urine Leukocytes - Negative Esterase Imaging Data CT Abdomen Pelvis: Radiologist's Impression: PROCEDURE: CT ABDOMEN PELVIS W CON INDICATIONS: pain in RLQ; RUQ; umibilcal region; concern appy TECHNIQUE: After the administration of intravenous contrast, axial sections acquired from the lung bases to the pubic symphysis. Coronal and sagittal reformats were performed. For radiation dose reduction, the following was used: automated exposure control, adjustment of mA and/or kV according to patient size. COMPARISON: None. FINDINGS: Image quality: Diagnostic. Lower Chest: No significant findings. ABDOMEN: Liver: No solid mass. Gallbladder: No radiopaque gallstones or wall thickening. Biliary ducts: No biliary dilation. Pancreas: No ductal dilation. Spleen: Size is within normal limits. Adrenal Glands: No adrenal nodules. Kidneys and Ureters: No hydronephrosis. No solid mass. No complex renal cystic lesion which requires follow up. 3 mm nonobstructing right renal calculus. Stomach and Bowel: Normal colonic caliber, without significant wall thickening. Appendix is normal. No right lower quadrant inflammatory change. Peritoneum: Mild dependent pelvic fluid.. No free air. Ventral Wall: No significant ventral hernia. Abdominal Nodes: No retroperitoneal or mesenteric adenopathy by size criteria. Vessels: Aorta and inferior vena cava are normal in size. PELVIS: Pelvic Organs: IUD is present. Enhancing focus within the left adnexa measuring 1.3 cm. Bladder: No bladder wall thickening, accounting for underdistention. Pelvic Nodes: No enlarged lymph nodes. Miscellaneous: No inguinal hernias are seen. Bones: No aggressive osseous abnormality. IMPRESSION: Enhancing left adnexal focus with dependent pelvic fluid suggestive of partially ruptured hemorrhagic cyst. Appendix is normal. Pelvis US: Radiologist's Impression: PROCEDURE: US PELVIC COMPLETE INDICATIONS: abd pain worse suprapubic/RLQ; left ruptured cyst on CT TECHNIQUE: Real-time scanning was performed of the pelvic organs, with image documentation. Additional endovaginal scanning was necessary due to incomplete visualization of the adnexal and endometrial structures by transabdominal scanning. COMPARISON: [facility], US, US PELVIC COMPLETE, 05/23/2024, 16:22. FINDINGS: Uterus: Uterus is anteverted and normal in size at 8.3 x 5.6 x 4.3 cm. The myometrium is homogeneous. The endometrium measures 4 mm combined thickness. Intrauterine device in appropriate position. Ovaries: The right ovary measures 3.4 x 1.7 x 1.9 cm, with a calculated ovarian volume of 5.7 cc. The left ovary measures 3.9 x 2.3 x 2.4 cm, with a calculated ovarian volume of 11.3 cc. Thick-walled left ovarian structure with increased vascularity measuring 2.2 x 2.0 x 1.9 cm, may represent a ruptured hemorrhagic cyst. Less than 12 follicles can be seen in each ovary. No adnexal masses are seen. Other: Small free fluid within the right adnexa and posterior cul-de-sac.. IMPRESSION: Possible ruptured left ovarian hemorrhagic cyst measuring 2.2 cm. Recommend follow-up ultrasound in 6-12 weeks to assess for resolution. Intrauterine device appears appropriately position. We strive to produce accurate, complete, and clear reports of imaging services. To assist us in improving patient care, this report was composed using standard report templates and voice recognition software. Therefore, it may contain abnormal punctuation, insertions and/or omissions. Occasional wrong-word or sound-alike substitutions may occur. Though we review the report and make efforts to correct it, we do recommend that the report be read carefully in proper context to recognize any text inaccuracies. MDM Narrative Medical decision making narrative: 24-year-old female, active [employer], with a past medical history of twin C-sec 02/26/24 complicated by HELLP syndrome, with loss of child 3 months ago that presents to the emergency department for sudden and severe right lower quadrant abdominal pain that started at approximately 8:00 a.m. this morning. Differential diagnosis includes but isn't limited to appendicitis cholecystitis ovarian cyst, ruptured ovarian cyst, ovarian torsion, displaced IUD, hernia, etc. On exam the patient is in no acute distress, nontoxic appearing, she does have sinus bradycardia which is not baseline for her. Significant abdominal tenderness with guarding in the periumbilical region, right lower quadrant right upper quadrant. Patient states pain is worse in the right lower quadrant. History of . EKG and labs obtained in triage. We will add on fluids, Tylenol, Toradol as patient declines opioids at this time CT abdomen pelvis for the cultures ordered. Negative urinalysis and results done in triage. While in the fast track area of the emergency department on the portable monitor, the patient's heart rate decreased into the upper 30s and she was therefore moved to the main emergency department for higher level of care and cardiac monitoring. ED attending Dr. Lange consulted and aware of patient. Labs reveal normal WBC count 6.6, hemoglobin 13.6, hematocrit 40.5. Normal electrolytes potassium 4.1, magnesium 1.8, normal renal function. Slightly elevated AST 48 ALT 55 however these are improved from priors. Negative troponin, normal CK 128. Normal lipase 108. Urine toxicology negative. CT abdomen and pelvis with IV contrast reveals enhancing left adnexal focus with dependent pelvic fluid suggestive a partially ruptured hemorrhagic cyst. Appendix is normal. Liver reveals no solid mass, gallbladder reveals no radiopaque gallstones or wall thickening. Patient's pain has improved however she continues to have abdominal tenderness, currently worse in the suprapubic region. Discussed imaging results with her, we will proceed with pelvic ultrasound for further evaluation. She continues to have a slow heart rate in the upper 30s and low 40s, and she feels lightheaded and dizzy upon standing. We will obtain orthostatic vital signs and consult Cardiology //normal orthostatic vital signs, no change in blood pressure or heart rate, did discuss case with cardiology who states that patient can be observed overnight if she is having low blood pressures or other concern. Patient was given a 2 L of IV fluids, and a full meal as she reports she had 90 in since yesterday, and after this her heart rate improved and sustained in the 60s 70s. CT abdomen and pelvis and pelvic ultrasound consistent with ruptured left ovarian cyst. Patient's pain is improved, abdominal exam is benign, she has no longer feeling lightheaded after heart rate normalized. After extensive shared decision-making, did offer admission for further cardiac monitoring however she is feeling better and agreeable to follow up outpatient with Cardiology, PCP for Holter monitor. Discussed strict ED return precautions. Prescribed naproxen if needed for pelvic pain and recommended follow up with repeat ultrasound with OBGYN. She verbalized understanding of all information is agreeable to the plan. She is stable for discharge home. <Jono Lange MD - Last Filed: 11/12/24 07:29> Lab Data Labs: Lab Results 11/09/24 Range/Units 11:20 WBC 6.6 (4.5-11.0) X10^3/uL RBC 4.79 (4.0-5.2) X10^6/uL Hgb 13.6 (12.0-16.0) g/dL Hct 40.5 (36-46) % MCV 84.5 (80-100) fL MCH 28.3 (26-34) PG MCHC 33.5 (30-36) % RDW 13.7 (11.6-14.8) % Plt Count 314 (150-400) X10^3/uL Neut % (Auto) 50.4 (50-75) % Lymph % (Auto) 42.4 H (25-40) % [place] % (Auto) 5.3 (3-14) % Eos % (Auto) 1.1 L (2-4) % Baso % (Auto) 0.8 (0-2) % Neut # (Auto) 3300 (4548-2484) /uL Lymph # (Auto) 2800 (5893-4638) /uL [place] # (Auto) 400 (0-900) /uL Eos # (Auto) 100 (0-450) /uL Baso # (Auto) 100 (0-100) /uL Sodium 139 (137-145) mmol/L Potassium 4.1 (3.4-5.1) mmol/L Chloride 105 (98-107) mmol/L Carbon Dioxide 23 (22-32) mmol/L BUN 8 (7-17) mg/dL Creatinine 0.77 (0.52-1.04) mg/dL Estimated GFR > 60 (>60) mL/min BUN/Creatinine Ratio 10.4 (6-22) Glucose 78 (70-100) mg/dL Calcium 9.4 (8.4-10.2) mg/dL Magnesium 1.8 (1.6-2.3) mg/dL Total Bilirubin 0.9 (0.2-1.3) mg/dL AST 48 H (14-36) IU/L ALT 55 H (<35) IU/L Alkaline Phosphatase 56 (38-126) U/L Total Creatine Kinase 128 (30-135) U/L Troponin I < 0.012 (0.01-0.034) ng/mL Total Protein 7.9 (6.3-8.2) g/dL Albumin 4.8 (3.5-5.0) g/dL Globulin 3.1 (1.7-4.1) g/dL Albumin/Globulin Ratio 1.5 (1.0-2.8) Lipase 108 (23-300) U/L TSH 1.19 (0.47-4.68) uIU/mL U Opiates 300ng/mL cut Negative (Negative) Ur Oxycodone Screen Negative (Negative) Urine Methadone Screen Negative (Negative) Ur Barbiturates Screen Negative (Negative) U Tricyclic Antidepress Negative (Negative) Ur Phencyclidine Scrn Negative (Negative) Ur Amphetamines Screen Negative (Negative) U Methamphetamines Scrn Negative (Negative) Ur MDMA Scrn (Ecstasy) Negative (Negative) U Benzodiazepines Scrn Negative (Negative) Urine Cocaine Screen Negative (Negative) U Marijuana (THC) Screen Negative (Negative) Urine pH Normal (Normal) Urine Specific [place] Normal (Normal) Ur Creatinine Normal (Normal) Point of care testing: Point of Care Testing Test Results Negative Urine Dip Bedside Urine Glucose Negative Bedside Urine Bilirubin - Negative Bedside Urine Ketone - Negative Urine Specific [place] 1.010 Bedside Urine Occult Blood - Negative Bedside Urine pH 6.0 Bedside Urine Protein - Negative Bedside Urine Urobilinogen - Negative Bedside Urine Nitrite - Negative Bedside Urine Leukocytes - Negative Esterase Discharge Plan Departure Patient Disposition: Home Clinical Impression: Bradycardia, Ovarian cyst rupture Instructions: DI for Ovarian Cyst Activity Restrictions/Additional Instructions: Dear Ms. Dillard, Thank you for coming to the emergency department. Today you were evaluated for abdominal pain. CT and ultrasound imaging revealed a ruptured left ovarian cyst. Your appendix is normal. Your heart rate was very low which we continue to monitor but luckily it returned to normal range. It is very important he follow up with the primary care doctor for further evaluation and Holter monitor. It is also important that you follow up with [facility] cardiology for further evaluation. You can call at [phone], today I consult Dr. Campbell. Please follow up with your primary care doctor and your OBGYN for further management of ruptured ovarian cyst, we recommend you have repeat ultrasound in 6-12 weeks to assess for resolution. Return to the ER for any new or worsening symptoms, shortness of breath, dizziness, lightheadedness, severe pain, fevers or other concerns. Please follow up with your primary care doctor within the next 2-3 days for ER follow-up. (If you do not have a PCP you can call [phone]. ?to schedule an appointment with an [facility] Primary Care Provider) IF YOU DEVELOP ANY NEW OR WORSENING SYMPTOMS, RETURN TO THE ER! Please read the attached instructions, they highlight more specific treatments and interventions for you at home. Thank you for letting me participate in your care, Rosa Sheridan PA-C Prescriptions: New naproxen 500 mg tablet 500 mg PO BID PRN (Reason: pain) Qty: 20 0RF No Action vit-ferrous sulfat-FA 27 mg iron- 0.8 mg tablet PO fluoride (sodium) 1.1 % paste dental Mirena 21 mcg/24 hours (8 yrs) 52 mg intrauterine device intrauterine enoxaparin [Lovenox] 40 mg/0.4 mL syringe 40 mg SUBCUT DAILY Qty: 4 0RF oxycodone 5 mg tablet 5 mg PO Q4H PRN (Reason: pain) Qty: 20 0RF labetalol 200 mg tablet 200 mg PO BID Qty: 30 0RF Referrals: ProviderHanna [Primary Care Provider] - Stand Alone Forms: Patient Portal/API/Survey ED Sign-out <Jono Lange MD - Last Filed: 11/12/24 07:29> Cosign ED Attending Juan Miguel Attestation: I was immediately available in the department for consultation. ?This documentation has been reviewed and I agree with assessment and plan. Supervised by Jono Lange MD
[2024-11-09 11:47] LABS: Alanine Aminotransferase 55 IU/L (<35); Albumin 4.8 g/dL (3.5-5.0); Albumin Globulin Ratio 1.5 (1.0-2.8); Alkaline Phosphatase 56 U/L (38-126); Aspartate Aminotransferase 48 IU/L (14-36); BUN Creatinine Ratio 10.4 (6-22); Bilirubin Total 0.9 mg/dL (0.2-1.3); Blood Urea Nitrogen 8 mg/dL (7-17); Calcium 9.4 mg/dL (8.4-10.2); Carbon Dioxide 23 mmol/L (22-32); Chloride 105 mmol/L (98-107); Estimated Glomerular Filt Rate > 60 mL/min (>60); Globulin 3.1 g/dL (1.7-4.1); Glucose 78 mg/dL (70-100); HEMOLYSIS 16 (0-50); Lipase 108 U/L (23-300); Potassium 4.1 mmol/L (3.4-5.1); Sodium 139 mmol/L (137-145); Total Protein 7.9 g/dL (6.3-8.2)
[2024-11-09] MEDS: ONDANSETRON 4 MG/2 ML INJ IV (11:47)
[2024-11-09] MEDS: SODIUM CHLORIDE 0.9% 1,000 ML 1000 ML IV ×2 (11:47→16:57)
--- NOTE | 2024-11-09 11:54 | DI.CT.S_ITS ---
PROCEDURE: CT ABDOMEN PELVIS W CON INDICATIONS: pain in RLQ; RUQ; umibilcal region; concern appy TECHNIQUE: After the administration of intravenous contrast, axial sections acquired from the lung bases to the pubic symphysis. Coronal and sagittal reformats were performed. For radiation dose reduction, the following was used: automated exposure control, adjustment of mA and/or kV according to patient size. COMPARISON: None. FINDINGS: Image quality: Diagnostic. Lower Chest: No significant findings. ABDOMEN: Liver: No solid mass. Gallbladder: No radiopaque gallstones or wall thickening. Biliary ducts: No biliary dilation. Pancreas: No ductal dilation. Spleen: Size is within normal limits. Adrenal Glands: No adrenal nodules. Kidneys and Ureters: No hydronephrosis. No solid mass. No complex renal cystic lesion which requires follow up. 3 mm nonobstructing right renal calculus. Stomach and Bowel: Normal colonic caliber, without significant wall thickening. Appendix is normal. No right lower quadrant inflammatory change. Peritoneum: Mild dependent pelvic fluid.. No free air. Ventral Wall: No significant ventral hernia. Abdominal Nodes: No retroperitoneal or mesenteric adenopathy by size criteria. Vessels: Aorta and inferior vena cava are normal in size. PELVIS: Pelvic Organs: IUD is present. Enhancing focus within the left adnexa measuring 1.3 cm. Bladder: No bladder wall thickening, accounting for underdistention. Pelvic Nodes: No enlarged lymph nodes. Miscellaneous: No inguinal hernias are seen. Bones: No aggressive osseous abnormality. IMPRESSION: Enhancing left adnexal focus with dependent pelvic fluid suggestive of partially ruptured hemorrhagic cyst. Appendix is normal. Dictated by: Naima Diaz M.D. on 11/09/2024 at 12:37 Approved by: Naima Diaz M.D. on 11/09/2024 at 12:39
[2024-11-09] MEDS: KETOROLAC 30 MG/ML VIAL 15 MG IV (11:58)
[2024-11-09] MEDS: ACETAMINOPHEN 325 MG TABLET 650 MG PO (11:58)
[2024-11-09 11:59] LABS: Creatine Kinase 128 U/L (30-135)
[2024-11-09 12:11] LABS: Troponin I < 0.012 ng/mL (0.01-0.034)
[2024-11-09 12:46] LABS: UR Morphine/Opiate cutoff 300 Negative (Negative); Ur Creatinine Normal (Normal); Ur Specific Gravity Normal (Normal); Urine Amphetamines Negative (Negative); Urine Barbiturates Negative (Negative); Urine Benzodiazepines Negative (Negative); Urine Cocaine Negative (Negative); Urine MDMA Negative (Negative); Urine Methadone Negative (Negative); Urine Methamphetamines Negative (Negative); Urine Oxycodone Negative (Negative); Urine Phencyclidine Negative (Negative); Urine Tetrahydrocannabinol Negative (Negative); Urine Tricyclic Antidepressant Negative (Negative); Urine pH Normal (Normal)
[2024-11-09 12:56] LABS: Magnesium 1.8 mg/dL (1.6-2.3)
--- NOTE | 2024-11-09 13:18 | DI.US.S_ITS ---
PROCEDURE: US PELVIC COMPLETE INDICATIONS: abd pain worse suprapubic/RLQ; left ruptured cyst on CT TECHNIQUE: Real-time scanning was performed of the pelvic organs, with image documentation. Additional endovaginal scanning was necessary due to incomplete visualization of the adnexal and endometrial structures by transabdominal scanning. COMPARISON: , US, US PELVIC COMPLETE, 05/23/2024, 16:22. FINDINGS: Uterus: Uterus is anteverted and normal in size at 8.3 x 5.6 x 4.3 cm. The myometrium is homogeneous. The endometrium measures 4 mm combined thickness. Intrauterine device in appropriate position. Ovaries: The right ovary measures 3.4 x 1.7 x 1.9 cm, with a calculated ovarian volume of 5.7 cc. The left ovary measures 3.9 x 2.3 x 2.4 cm, with a calculated ovarian volume of 11.3 cc. Thick-walled left ovarian structure with increased vascularity measuring 2.2 x 2.0 x 1.9 cm, may represent a ruptured hemorrhagic cyst. Less than 12 follicles can be seen in each ovary. No adnexal masses are seen. Other: Small free fluid within the right adnexa and posterior cul-de-sac.. IMPRESSION: Possible ruptured left ovarian hemorrhagic cyst measuring 2.2 cm. Recommend follow-up ultrasound in 6-12 weeks to assess for resolution. Intrauterine device appears appropriately position. We strive to produce accurate, complete, and clear reports of imaging services. To assist us in improving patient care, this report was composed using standard report templates and voice recognition software. Therefore, it may contain abnormal punctuation, insertions and/or omissions. Occasional wrong-word or sound-alike substitutions may occur. Though we review the report and make efforts to correct it, we do recommend that the report be read carefully in proper context to recognize any text inaccuracies. Dictated by: David Whitley M.D. on 11/09/2024 at 15:31 Approved by: David Whitley M.D. on 11/09/2024 at 15:34
[2024-11-09 13:28] LABS: Thyroid Stimulating Hormone 1.19 uIU/mL (0.47-4.68)
--- NOTE | 2024-11-09 16:37 | PC.NURSE ---
Alexander Sheridan states that patient can be taken off NPO. Provider then got patient food and fluids. This RN stopped order per provider verbal order.
== END 2024-11-09 19:33 | disposition home or self-care (01) ==
PROVIDERS: Emergency Medicine; Emergency Provider Physician Assistant
DX: N83.202 Unspecified ovarian cyst, left side (principal); R00.1 Bradycardia, unspecified; Z97.5 Presence of (intrauterine) contraceptive device
CPT/HCPCS: 74177; 76856; 80053; 80305; 81003; 81025; 82550; 83690; 83735; 84443; 84484; 85025; 93005; 96361; 96374; 96375; 99284; J1885; J2405; Q9967